=== PATIENT | female | born 1965 | race Caucasian/White ===

== ENCOUNTER 2024-09-15 10:15 | Emergency (ER) | payer BC, SELFPAY ==
[2024-09-15] VITALS (8 sets, daily range): BP systolic 160–191; BP diastolic 85–105; PULSE 98–104; RESP 16–20; TEMP 37.2; O2SAT 96–99; BMI 24.9
--- NOTE | 2024-09-15 | CRLHL7_ITS ---
For Patients: As a result of the Cures Act, medical imaging exams and procedure reports are released immediately into your electronic medical record. You may view this report before your referring provider. If you have questions, please contact your health care provider. Indication: Pain/fall Technique: Right knee 3 views Comparison: None Findings: Bones: No acute fracture or dislocation. Joint spaces: Chondrocalcinosis. Mild patellofemoral joint osteoarthritis. Soft tissues: No knee joint effusion. Impression: No sign of acute injury. Dictated by Dottie Bhakta MD @ 09/15/2024 11:53:19 AM (Electronically Signed)
--- OUTSIDE RECORDS SUMMARY | 2024-09-15 10:17 | XMS_ITS | Data Portability ---
Author Organization [place] [facility] [place] Address [address] [place] [id number] Assessment Encounter Date Assessment Date Assessment LastModified by Organization Details LastModified Time 06/30/2024 06/30/2024 Time spent reviewing the patient s medical record, diagnostic studies, performing a focused history and physical exam, educating the patient regarding the natural history of disease as it pertains to the patient, discussing treatment options and alternatives, medical decision making, and chartin-39 minutes. Not available 06/30/2024 14:48:53 Plan of Treatment Reminders Order Date Submit Date Provider Last Modified By Organization Details Last Modified Time Details Appointments None record ed. Lab None record ed. Referral None record ed. Procedures None record ed. Surgeries None record ed. Imaging None record ed. Medication Orders None record ed. Patient TargetsNo targets recorded. Patient Instructions Encounter Date Encounter Id Patient Instructions Last Modified By Organization Details Last Modified Time 06/30/2024 [id number] PROCEDURE RECOMMENDATIONS 1. Ultrasound guided foam sclerotherapy of the residual incompetent tributaries and varicosities greater than 3.0mm of the left leg (96407, 10099) - 1 sessions 2. Ultrasound guided foam sclerotherapy of the residual incompetent tributaries and varicosities greater than 3.0mm of the right leg (75372, 81261) - 2 sessions Not available 06/30/2024 14:49:05 Reason for Referral None Reported. Problems Name Problem SNOMED Code Status Onset Date Resolution Date Notes Provider Name and Address Organization Details Recorded Time Pain co-occurr ent and due to varicose veins of left leg [id number] 316682 Active 2022 Varicose veins of left lower extremiti es with pain; Status Update Date: 10/19/2022 12:32:02 PM Record Status: True Elle ge Code ID: I83.812 T erminal ID: [id number] ICD Code Version: 10 Not Available [facility] 22:42:42 Problem Notes None recorded. Procedures Surgical History Date Name Laterality Status Provider Name and Address Organization Details Recorded Time 07/28/20 PVC - Ultrasound Guided Sclerotherapy completed Solange Nelson [place] [facility] 07/28/2024 14:00:03 Hysterectomy completed ROSA MARIA Brandon-C [address], [place], [address], [facility] 06/30/2024 14:34:14 Vein Stripping completed ROSA MARIA Brandon-C [address], [place], [address], [facility] 06/30/2024 14:34:14 Vein procedure completed Sylvia Peck PA-C [address], [place], [address], [facility] 06/30/2024 14:34:14 Hand Surgery completed ROSA MARIA Brandon-C [address], [place], [address], [facility] 06/30/2024 14:34:14 Bladder surgery completed Sylvia Peck, PA-C [address], [place], [address], [facility] 06/30/2024 14:34:14 Imaging Results None recorded. Procedure Notes None recorded. Medical Equipment None Reported. Allergies Allergen ID Allergen Name Allergen Category Reaction Reaction Severity Criticality Documentation Date Start Date Code Code System Note Provider Name and Address Organization Details Recorded Time 1908 Betadine medicatio n Not available Not available Not available 09/10/2023 0 RxNorm Comme nt: NoKno wDrug Aller gy: False Jericho rgy Name ID: [id number] Aller gy Remov e Reaso nID: 0 All ergy Remov e By ID: 0 Rec ord Statu s: 1 Ter valerie ID: 59 Da teCRU D: 023 6:28: 00 PM Al lergy Statu s: 1 Ely ction Time: 12:00 AM En tered By Patie nt: False ; Not Available [facility] 3 22:35:16 191 hydrochlo rothiazid e medicatio n Not available Not available Not available 09/10/2023 5487 RxNorm Comme nt: NoKno wDrug Aller gy: False Jericho rgy Name ID: [id number] Aller gy Remov e Reaso nID: 0 All ergy Remov e By ID: 0 Rec ord Statu s: 1 Ter valerie ID: 59 Da teCRU D: 023 6:24: 00 PM Al lergy Statu s: 1 Emmie ction Time: 12:00 AM En tered By Robert nt: False ; Not Available [facility] 3 22:35:16 191 sulfabenz amide Not available Not available Not available Not available 09/10/2023 32941 RxNorm Comme nt: NoKno wDrug Aller gy: False Jericho rgy Name ID: [id number] Jericho rgy Remov e Reaso nID: 0 All ergy Remov e By ID: 0 Rec ord Statu s: 1 Ter valerie ID: 59 Da teCRU D: 023 6:26: 00 PM Al lergy Statu s: 1 Emmie ction Time: 12:00 AM En tered By Robert nt: False ; Not Available [facility] 3 22:35:16 1920 Cortispor in medicatio n Not available Not available Not available 09/10/2023 84756 RxNorm Comme nt: NoKno wDrug Aller gy: False Jericho rgy Name ID: [id number] Aller gy Remov e Reaso nID: 0 All ergy Remov e By ID: 0 Rec ord Statu s: 1 Ter valerie ID: 59 Da teCRU D: 023 6:26: 00 PM Al lergy Statu s: 1 Ely ction Time: 12:00 AM En tered By Robert nt: False ; Not Available [facility] 3 22:35:16 192 Imitrex medicatio n Not available Not available Not available 09/10/2023 06653 3 RxNorm Comme nt: NoKno wDrug Aller gy: False Jericho rgy Name ID: [id number] Aller gy Remov e Reaso nID: 0 All ergy Remov e By ID: 0 Rec ord Statu s: 1 Ter valerie ID: 59 Da teCRU D: 023 6:24: 00 PM Al lergy Statu s: 1 Ely ction Time: 12:00 AM En tered By Patimorales nt: False ; Not Available [facility] 3 22:35:16 1928 ofloxacin medicatio n Not available Not available Not available 09/10/2023 7623 RxNorm Comme nt: NoKno wDrug Aller gy: False Jericho rgy Name ID: [id number] Aller gy Remov e Reaso nID: 0 All ergy Remov e By ID: 0 Rec ord Statu s: 1 Ter valerie ID: 59 Da teCRU D: 023 6:27: 00 PM Al lergy Statu s: 1 Ely ction Time: 12:00 AM En tered By Robert nt: False ; Not Available [facility] 3 22:35:16 193 ketorolac medicatio n Not available Not available Not available 09/10/2023 26424 RxNorm Comme nt: NoKno wDrug Aller gy: False Jericho rgy Name ID: [id number] Aller gy Remov e Reaso nID: 0 All ergy Remov e By ID: 0 Rec ord Statu s: 1 Ter valerie ID: 59 Da teCRU D: 023 6:27: 00 PM Al lergy Statu s: 1 Ely ction Time: 12:00 AM En tered By Robert nt: False ; Not Available [facility] 3 22:35:16 193 Claritin medicatio n Not available Not available Not available 09/10/2023 93529 6 RxNorm Comme nt: NoKno wDrug Aller gy: False Jericho rgy Name ID: [id number] Aller gy Remov e Reaso nID: 0 All ergy Remov e By ID: 0 Rec ord Statu s: 1 Ter valerie ID: 59 Da teCRU D: 023 6:28: 00 PM Al lergy Statu s: 1 Ely ction Time: 12:00 AM En tered By Robert nt: False ; Not Available [facility] 3 22:35:16 1940 Product containin g angiotens in-conver ting enzyme inhibitor (product) medicatio n Not available Not available Not available 09/10/2023 47910 009 SNOMED Comme nt: NoKno wDrug Aller gy: False Jericho rgy Name ID: 8 All ergy Remov e Reaso nID: 0 All ergy Remov e By ID: 0 Rec ord Statu s: 1 Ter valerie ID: 59 Da teCRU D: 023 6:24: 00 PM Al lergy Statu s: 1 Ely ction Time: 12:00 AM En tered By Patimorales nt: False ; Not Available [facility] 3 22:35:16 1944 alprazola m medicatio n Not available Not available Not available 09/10/2023 596 RxNorm React ion: makes anxie ty worse ; Comme nt: NoKno wDrug Aller gy: False Jericho rgy Name ID: [id number] Aller gy Remov e Reaso nID: 0 All ergy Remov e By ID: 0 Rec ord Statu s: 1 Ter valerie ID: 59 Da teCRU D: 023 6:28: 00 PM Al lergy Statu s: 1 Ely ction Time: 12:00 AM En tered By Robert nt: False ; Not Available [facility] 3 22:35:16 1948 neomycin medicatio n Not available Not available Not available 09/10/2023 7299 RxNorm Comme nt: NoKno wDrug Aller gy: False Jericho rgy Name ID: [id number] Aller gy Remov e Reaso nID: 0 All ergy Remov e By ID: 0 Rec ord Statu s: 1 Ter valerie ID: 59 Da teCRU D: 023 6:26: 00 PM Al lergy Statu s: 1 Ely ction Time: 12:00 AM En tered By Robert nt: False ; Not Available [facility] 3 22:35:16 1952 sulfate salt Not available Not available Not available Not available 09/10/2023 React ion: Eye and ear drops ; Comme nt: NoKno wDrug Aller gy: False Jericho rgy Name ID: [id number] Jericho rgy Remov e Reaso nID: 0 All ergy Remov e By ID: 0 Rec ord Statu s: 1 Ter valerie ID: 59 Da teCRU D: 023 6:27: 00 PM Al lergy Statu s: 1 Ely ction Time: 12:00 AM En tered By Patimorales nt: False ; Not Available [facility] 3 22:35:16 1958 polymyxin B Not available Not available Not available Not available 09/10/2023 8536 RxNorm Comme nt: NoKno wDrug Aller gy: False Jericho rgy Name ID: [id number] Jericho rgy Remov e Reaso nID: 0 All ergy Remov e By ID: 0 Rec ord Statu s: 1 Ter valerie ID: 59 Da teCRU D: 023 6:26: 00 PM Al lergy Statu s: 1 Ely ction Time: 12:00 AM En tered By Robert nt: False ; Not Available [facility] 3 22:35:16 1964 Medicinal product acting as adhesive (product) environme nt,medica tion Not available Not available Not available 09/10/2023 68671 2008 SNOMED Comme nt: NoKno wDrug Aller gy: False Jericho rgy Name ID: 0 All ergy Remov e Reaso nID: 0 All ergy Remov e By ID: 0 Rec ord Statu s: 1 Ter valerie ID: 59 Da teCRU D: 023 6:28: 00 PM Al lergy Statu s: 1 Ely ction Time: 12:00 AM En tered By Robert nt: False ; Not Available [facility] 3 22:35:17 8585 Iodinated contrast media (substanc e) medicatio n Not available Not available Not available 06/30/2024 00566 2003 SNOMED Sylvia Peck PA-C [address] [place], [address], [place] [facility] 4 14:36:11 Medications Name Sig Start Date Stop Date Status Note LastModified by Organization Details LastModified Time atorvastat in 10 mg tablet active Not Available Not Available Not Available azithromyc in 250 mg tablet active Not Available Not Available Not Available warfarin 2.5 mg tablet active Not Available Not Available Not Available spironolac tone 25 mg tablet active Not Available Not Available Not Available triamcinol one acetonide 0.1 % topical ointment topical active DrugStren gth: 0.1 % kit DrugC lass: Dermatolo gical - Glucocort icoid PRN : False Dur ation: 0 Duratio nType: Unknown F illedBy: Sylvia Peck Transmit : False IsD iscontinu e: False Pat ientDisco ntinued: False IsC urrentMed ications: True IsSi gned: False Max DailyDose : 0 Not Available Not Available Not Available sertraline 25 mg tablet active Not Available Not Available Not Available metformin ER 500 mg tablet,ext ended release 24 hr active Not Available Not Available Not Available atenolol 50 mg tablet active Not Available Not Available Not Available Zoloft Take 1/2 (half) Tablets oral active Method: Take Drug Strength: 25 mg tablet ugClass: Antidepre ssant - Selective Serotonin Reuptake Inhibitor s (SSRIs) P RN: False Dur ation: 0 Duratio nType: Unknown F illedBy: Sylvia Peck Transmit : False IsD iscontinu e: False Pat ientDisco ntinued: False IsC urrentMed ications: True IsSi gned: False Max DailyDose : 0 Not Available Not Available Not Available nystatin topical active DrugStren gth: 100,000 unit/gram cream Dominic gClass: Antifunga l - Amphoteri c Polyene Macrolide s, Vaginal Antifunga l - Amphoteri c Polyene Macrolide s, Mouth and Throat - Antifunga ls, Dermatolo gical - Antifunga l Amphoteri c Polyene Macrolide s PRN: False Dur ation: 0 Duratio nType: Unknown F illedBy: Sylvia Peck Transmit : False IsD iscontinu e: False Pat ientDisco ntinued: False IsC urrentMed ications: True IsSi gned: False Max DailyDose : 0 Not Available Not Available Not Available warfarin Take 1-2 Tablets oral every other day active Method: Take Drug Strength: 2.5 mg tablet ugClass: Anticoagu lants - Coumarin PRN: False Dur ation: 0 Duratio nType: Unknown F illedBy: Sylvia Peck Transmit : False IsD iscontinu e: False Pat ientDisco ntinued: False IsC urrentMed ications: True IsSi gned: False Max DailyDose : 0 Not Available Not Available Not Available Benadryl Take 2 Capsules oral active Method: Take Drug Strength: 25 mg capsule D rugClass: Antihista mine - 1st Generatio n - Ethanolam carolyn, Sedative- Hypnotic - Antihista mines, Dermatolo gical Antipruri tics - Antihista mines, Antihista mines - 1st Generatio n PRN: False Dur ation: 0 Duratio nType: Unknown F illedBy: Sylvia Peck Transmit : False IsD iscontinu e: False Pat ientDisco ntinued: False IsC urrentMed ications: True IsSi gned: False Max DailyDose : 0 Not Available Not Available Not Available mupirocin topical active DrugStren gth: 2 % ointment kit DrugC lass: Dermatolo gical - Antibacte rial Other PRN : False Dur ation: 0 Duratio nType: Unknown F illedBy: Sylvia Peck Transmit : False IsD iscontinu e: False Pat ientDisco ntinued: False IsC urrentMed ications: True IsSi gned: False Max DailyDose : 0 Not Available Not Available Not Available spironolac tone Take 1 Tablets oral active Method: Take Drug Strength: [address] ugClass: Diuretic - Aldostero ne Receptor Antagonis t, Non-selec tive, Aldostero ne Receptor Antagonis ts PRN: False Dur ation: 0 Duratio nType: Unknown F illedBy: Sylvia Peck Transmit : False IsD iscontinu e: False Pat ientDisco ntinued: False IsC urrentMed ications: True IsSi gned: False Max DailyDose : 0 Not Available Not Available Not Available atenolol Take 1 Tablets oral active Method: Take Drug Strength: 25 mg tablet ugClass: Beta Blockers Cardiac Selective PRN: False Dur ation: 0 Duratio nType: Unknown F illedBy: Sylvia Peck Transmit : False IsD iscontinu e: False Pat ientDisco ntinued: False IsC urrentMed ications: True IsSi gned: False Max DailyDose : 0 Not Available Not Available Not Available potassium Take 1 Tablets oral active Method: Take Drug Strength: 20 mg tablet,ch ewable Dr smythClass: Minerals and Electroly ana paula - Potassium , Oral PRN: False Dur ation: 0 Duratio nType: Unknown F illedBy: Sylvia Peck Transmit : False IsD iscontinu e: False Pat ientDisco ntinued: False IsC urrentMed ications: True IsSi gned: False Max DailyDose : 0 Not Available Not Available Not Available metformin Take 1 Tablets oral active Method: Take Drug Strength: 500 mg tablet,ER jose manuel.rete ntion 24 hr DrugCl ass: Insulin Response Enhancers - Biguanide s PRN: False Dur ation: 0 Duratio nType: Unknown F illedBy: Sylvia Peck Transmit : False IsD iscontinu e: False Pat ientDisco ntinued: False IsC urrentMed ications: True IsSi gned: False Max DailyDose : 0 Not Available Not Available Not Available Metamucil oral active DrugStren gth: 3.4 gram/5.[address] smythClass: Laxative - Bulk Forming P RN: False Dur ation: 0 Duratio nType: Unknown F illedBy: Sylvia Peck Transmit : False IsD iscontinu e: False Pat ientDisco ntinued: False IsC urrentMed ications: True IsSi gned: False Max DailyDose : 0 Not Available Not Available Not Available OneTouch Verio test strips active Not Available Not Available Not Available potassium chloride ER 20 mEq tablet,ext ended release active Not Available Not Available Not Available OneTouch Verio Flex Meter miscellan eous active Not Available Not Available No t Available OneTouch Delica Plus Lancet 33 gauge active Not Available Not Available Not Available Vitals None Recorded Social History Question Answer Notes LastModified by Organizat ion Details LastModified Time Tobacco Smoking Status Never Smoker Sylvia Peck PA-C [address], [place], [address], [facility] 06/30/2024 14:34:11 What Is Your Level Of Alcohol Consumption? None Information not available 06/30/2024 Are You Currently Employed? 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 3-4 Times Per Week Information not available 06/30/2024 Sex: Unknown Functional Status Question Answer Note LastModified by Organization D etails LastModified Time What is your exercise level? Moderate Information not available 06/30/2024 Mental Status None recorded. Family History Relationship Description Onset Age of this Age Resolved Age Notes LastModified by Organization Details LastModified Time Mother Pulmonary embolism Not available 2023 14:34:02 Unspecified Relation Varicose veins of lower extremity Not available 2023 14:34:02 Sister Varicose veins of lower extremity Not available 2023 14:34:02 Medical History Condition Response Clotting Disorder Y Deep Vein Thrombosis Y Varicose Veins Y Diabetes - Type II Y Asthma Y Pulmonary Embolism Y Gynecological History Statement/Question Response How many childrens do you have? 3 Number of Miscarriages O Number of Pregnancies 3 Are you or planning to become p regnant? N Are you ? N Obstetrics History GPAL:G 0 P 0 0 0 0 Past Encounters Encounter ID Performer Location Encounter Start Date Encounter Closed Date Diagnosis/Indication Diagnosis SNOMED-CT Code Diagnosis ICD10 Code [id number] MD Meagan Morgan [address] [place] [address] 06/30/2024 13:29:04 07/02/2024 04:11:42 Pain co-occurrent and due to varicose veins of bilateral legs [id number] I83.813 [id number] MD Meagan Morgan [address] [place] [address] 06/30/2024 13:29:05 07/01/2024 14:51:01 Pain co-occurrent and due to varicose veins of bilateral legs [id number] I83.813 [id number] MD Meagan Morgan [address] [place] [address] 07/28/2024 13:30:32 07/29/2024 09:21:49 Pain co-occurrent and due to varicose veins of left leg [id number] 4905930 I83.812 Health Concerns Section Related Observation LastModified by Organization Detai ls LastModified Time None Recorded Concern Status LastModified by Organization Details LastModified Time None Recorded Advance Directives Directive None Recorded Payers Encounter Date Sequence Insurance Name Policy Number Policy [place] Covered Member ID [place] Member ID Guarantor Name 06/30/2024 1 [employer] [employer] [id number] Caleb J Pasek [id number] Patricia J Pasek 06/30/2024 1 [employer] [employer] [place] [id number] Caleb J Pasek [id number] Patricia J Pasek 07/28/2024 1 [employer] [employer] [place] [id number] Caleb J Pasek [id number] Patricia J Pasek Notes Date Note Type Note Provider Name and Address Organization Details Recorded Time 4 text/html PVC (Q4U) RecheckReported bypatient.Please select the location of your concernRight Leg: Leg; Left Leg: Leg I have had symptoms:More than 3 months Have you ever experienced any of the following symptoms?Pain;Aching;Th robbing;Tired legs/Fatigue;Heaviness; Itching;Skin discoloration;Spider veins;Bulging veins When do the symptoms occur?Sitting;Standing up;After exercise;During exercise What activities of daily living do the symptoms affect?Sleep;Exercise;C hores;Leisure Activities What relieves your symptoms?Avoidance of long periods of sitting/standing; Leg elevation; Over the counter medicationsTylenol Do you wear compression stockings to relieve your symptoms?Yes How long have you worn compression stockings?More than 6 months Have you ever been prescribed medical grade compression stockings?Yes Ramonita Jenkins MD [address] [place], [address], [place] [facility] 06/30/2024 15:54:53 4 text/html The patient is a 59 yo female who presents with complaints of bilateral lower extremity varicose veins and increasing symptoms for the past several years. Patient also has known May Thurners and was seen by [facility] interventional radiology last year (CT and possible stenting was recommended) but was not in network with their office and has not found another IR provider. She did get relief with sclerotherapy done with our clinic last year. Symptoms include: pain, aching, tired legs, heavy legs, recurring swelling, spider veins, surface veins. Intrapelvic symptoms heaviness, pain present as well. History of multiple DVT. Patient is on chronic warfarin. There is no history of ulceration, cellulitis or phleborrhagia. Symptom location: Bilateral, ankle/leg/thigh Symptom severity: 6/10; moderately severe Symptoms occur with: prolonged sitting and standing, during activity/exercise, after activity/exercise, and are worse later in the day. ADLs affected by symptoms:-Exercise/acti vity: limit ability to exercise, including walking.-Work: Needs to take frequent breaks to walk and/or elevate legs.-Chores: Avoids chores or needs to take breaks to walk and/or elevate legs.-Leisure activities: Avoids activities or needs to take breaks to walk and/or elevate. Conservative measures implemented without relief of symptoms:-avoidance of prolonged periods of sitting or standing,-regular exercise including moderate daily walking,-leg elevation,-weight control,-GCS 20-30 mmHg >3 months, Rx given in 2022 and patient worn prior to that as well,-OTC analgesics. Ramonita Jenkins MD [address] [place], [address], [place] [facility] 06/30/2024 15:55:04 OBGyn Episode No OBEpisode recorded.
--- OUTSIDE RECORDS SUMMARY | 2024-09-15 10:18 | XMS_ITS | Continuity of Care Document ---
Author Organization [place] [facility] [place] Address [address] [place] [address] Assessment Encounter Date Assessment Date Assessment LastModified [...] By Organization Details Last Modified Time 06/30/2024 43416 PROCEDURE RECOMMENDATIONS 1. Ultrasound guided foam sclerotherapy of the residual incompetent tributaries and varicosities greater than 3.0mm of the left leg (47505, 43337) - 1 sessions 2. Ultrasound guided foam sclerotherapy of the residual incompetent tributaries and varicosities greater than 3.0mm of the right leg (10192, 11667) - 2 sessions Not available 06/30/2024 14:49:05 Reason for Referral None Reported. Problems Name Problem SNOMED Code Status Onset Date Resolution Date Notes Provider Name and Address Organization Details Recorded Time Pain co-occurr ent and due to varicose veins of left leg [id number] Active 2022 Varicose veins of left lower extremiti es with pain; Status Update Date: 10/19/2022 12:32:02 PM Record Status: True Elle ge Code ID: I83.812 T erminal ID: 56 ICD Code Version: 10 Not Available [facility] 22:42:42 Problem Notes None recorded. Procedures Surgical History Date Name Laterality Status Provider Name and Address Organization Details Recorded Time 07/28/20 PVC - Ultrasound Guided Sclerotherapy completed Solange Nelson [place] - [facility] 07/28/2024 14:00:03 Hysterectomy completed Sylvia Peck PA-C [address], [place], [address], [facility] - [facility] 06/30/2024 14:34:14 Vein Stripping completed Sylvia Peck PA-C [address], [place], [address], [facility] - [facility] 06/30/2024 14:34:14 Vein procedure completed Sylvia Peck, PA-C [address], [place], [address], [facility] - [facility] 06/30/2024 14:34:14 Hand Surgery completed Sylvia Peck, PA-C [address], [place], [address], [facility] - [facility] 06/30/2024 14:34:14 Bladder surgery completed Sylvia Peck, PA-C [address], [place], [address], [facility] - [facility] 06/30/2024 14:34:14 Imaging [...] By Robert nt: False ; Not Available [facility] 3 22:35:16 191 hydrochlo rothiazid e medicatio [...] 00 PM Al lergy Statu s: 1 [place] ction Time: 12:00 AM En tered By Robert nt: False ; Not Available [facility] 3 22:35:16 191 sulfabenz amide Not available Not available Not available Not available 09/10/2023 55522 RxNorm Comme nt: NoKno wDrug Aller gy: False Jericho rgy Name ID: [id number] Jericho rgy Remov e Reaso nID: 0 All ergy Remov e By ID: 0 Rec ord Statu s: 1 Ter valerie ID: 59 Da teCRU D: 023 6:26: 00 PM Al lergy Statu s: 1 [place] ction Time: 12:00 AM En tered By Robert nt: False ; Not Available [facility] 3 22:35:16 192 Cortispor in medicatio n Not available Not available Not available 09/10/2023 09881 RxNorm Comme nt: NoKno wDrug Aller gy: False Jericho rgy Name ID: [id number] Aller gy Remov e Reaso nID: 0 All ergy Remov e By ID: 0 Rec ord Statu s: 1 Ter valerie ID: 59 Da teCRU D: 023 6:26: 00 PM Al lergy Statu s: 1 Emmie ction Time: 12:00 AM En tered By Robert nt: False ; Not Available [facility] 3 22:35:16 192 Imitrex medicatio n Not available Not available Not available 09/10/2023 13297 3 RxNorm Comme nt: NoKno wDrug Aller gy: False Jericho rgy Name ID: [id number] Aller gy Remov e Reaso nID: 0 All ergy Remov e By ID: 0 Rec ord Statu s: 1 Ter valerie ID: 59 Da teCRU D: 023 6:24: 00 PM Al lergy Statu s: 1 [place] ction Time: 12:00 AM En tered By Robert nt: False ; Not Available [facility] 3 22:35:16 1928 ofloxacin medicatio n Not available Not available Not available 09/10/2023 7623 RxNorm Comme nt: NoKno wDrug Aller gy: False Jericho rgy Name ID: [id number] Aller gy Remov e Reaso nID: 0 All ergy Remov e By ID: 0 Rec ord Statu s: 1 Ter valerie ID: 59 Da teCRU D: 023 6:27: 00 PM Al lergy Statu s: 1 [place] ction Time: 12:00 AM En tered By Robert nt: False ; Not Available [facility] 3 22:35:16 193 ketorolac medicatio n Not available Not available Not available 09/10/2023 36931 RxNorm Comme nt: NoKno wDrug Aller gy: False Jericho rgy Name ID: [id number] Aller gy Remov e Reaso nID: 0 All ergy Remov e By ID: 0 Rec ord Statu s: 1 Ter valerie ID: 59 Da teCRU D: 023 6:27: 00 PM Al lergy Statu s: 1 [place] ction Time: 12:00 AM En tered By Robert nt: False ; Not Available [facility] 3 22:35:16 1936 Claritin medicatio n Not available Not available Not available 09/10/2023 24402 6 RxNorm Comme nt: NoKno wDrug Aller gy: False Jericho rgy Name ID: [id number] Aller gy Remov e Reaso nID: 0 All ergy Remov e By ID: 0 Rec ord Statu s: 1 Ter valerie ID: 59 Da teCRU D: 023 6:28: 00 PM Al lergy Statu s: 1 Emmie ction Time: 12:00 AM En tered By Robert nt: False ; Not Available [facility] 3 22:35:16 1940 Product containin g angiotens in-conver ting enzyme inhibitor (product) medicatio n Not available Not available Not available 09/10/2023 43670 009 SNOMED Comme nt: NoKno wDrug Aller gy: False Jericho rgy Name ID: 8 All ergy Remov e Reaso nID: 0 All ergy Remov e By ID: 0 Rec ord Statu s: 1 Ter valerie ID: 59 Da teCRU D: 023 6:24: 00 PM Al lergy Statu s: 1 Emmie ction Time: 12:00 AM En tered By Robert nt: False ; Not Available [facility] 3 22:35:16 1944 alprazola m medicatio n [...] By Robert nt: False ; Not Available [facility] 3 22:35:16 1948 neomycin medicatio n Not [...] By Robert nt: False ; Not Available [facility] 3 22:35:16 1952 sulfate salt Not available Not available Not available Not available 09/10/2023 React ion: Eye and ear drops ; Comme nt: NoKno wDrug Aller gy: False Jericho rgy Name ID: [id number] Jericho rgy Remov e Reaso nID: 0 All ergy Remov e By ID: 0 Rec ord Statu s: 1 Ter valerie ID: 59 Da teCRU D: 023 6:27: 00 PM Al lergy Statu s: 1 Emmie ction Time: 12:00 AM En tered By Patimorales nt: False ; Not Available [facility] 3 22:35:16 1958 polymyxin B Not available Not available Not available Not available 09/10/2023 8536 RxNorm Comme nt: NoKno wDrug Aller gy: False Jericho rgy Name ID: [id number] Jericho rgy Remov e Reaso nID: 0 All ergy Remov e By ID: 0 Rec ord Statu s: 1 Ter valerie ID: 59 Da teCRU D: 023 6:26: 00 PM Al lergy Statu s: 1 Emmie ction Time: 12:00 AM En tered By Patimorales nt: False ; Not Available [facility] 3 22:35:16 1964 Medicinal product acting as adhesive (product) environme nt,medica tion Not available Not available Not available 09/10/2023 13054 2008 SNOMED Comme nt: NoKno wDrug Aller gy: False Jericho rgy Name ID: 0 All ergy Remov e Reaso nID: 0 All ergy Remov e By ID: 0 Rec ord Statu s: 1 Ter valerie ID: 59 Da teCRU D: 023 6:28: 00 PM Al lergy Statu s: 1 Emmie ction Time: 12:00 AM En tered By Patimorales nt: False ; Not Available [facility] 3 22:35:17 8585 Iodinated contrast media (substanc e) medicatio n Not available Not available Not available 06/30/2024 00047 2004 SNOMED Sylvia Peck PA-C [address] [place], [address], [place] [facility] 4 14:36:11 [...] Take Drug Strength: 25 mg tablet ugClass: Diuretic - Aldostero ne Receptor Antagonis [...] Take Drug Strength: [address] smythClass: Beta Blockers Cardiac Selective PRN: False Dur [...] Time Tobacco Smoking Status Never Smoker Sylvia Peck, JEREMIAH [address] [place], [address], [place] [facility] 06/30/2024 14:34:11 What Is Your Level Of Alcohol Consumption? None Information not available 06/30/2024 Are You Currently Employed? 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 [employer] Information not available 06/30/2024 How [...] available 2023 14:34:02 Medical History Condition Response Diabetes - Type II Y Clotting Disorder Y Deep Vein Thrombosis Y Varicose Veins Y Asthma Y Pulmonary Embolism Y Gynecological [...] Diagnosis/Indication Diagnosis SNOMED-CT Code Diagnosis ICD10 Code [id number] MD Meagan Morgan [address] [place] [address] 06/30/2024 13:29:04 07/02/2024 04:11:42 Pain co-occurrent and due to varicose veins of bilateral legs [id number] 4263320 I83.813 [id number] MD Meagan Morgan [address] [place] [address] 06/30/2024 13:29:05 07/01/2024 14:51:01 Pain co-occurrent and due to varicose veins of bilateral legs [id number] 4962793 I83.813 Health Concerns Section Related Observation LastModified by Organization Detai ls LastModified Time None Recorded Concern Status LastModified by Organization Details LastModified Time None Recorded Payers Encounter Date Sequence Insurance Name Policy Number Policy [place] Covered Member ID Hampton Member ID Guarantor Name 06/30/2024 1 [employer]: GISELLE MONTERO CROSS (PPO) [id number] Caleb Rodgers Helio [id number] 02 Patricia Cadet Notes Date Note Type Note Provider Name [...] compression stockings?Yes Ramonita Jenkins MD [address] [facility], [place], [address], [facility] - [facility] 06/30/2024 15:54:53 4 text/html The patient is a 59 yo female who presents with complaints of bilateral lower extremity varicose veins and increasing symptoms for the past several years. Patient also has known Maia Greene and was seen by E interventional radiology [...] that as well,-OTC analgesics. Ramonita Jenkins MD [address], [place], [address], [place] [facility] 06/30/2024 15:55:04 OBGyn Episode No OBEpisode recorded.
--- OUTSIDE RECORDS SUMMARY | 2024-09-15 10:18 | XMS_ITS | Continuity of Care Document ---
Author Organization [facility] [place] Address [address] [place] [address] Assessment No assessment recorded. Plan of Treatment Reminders Order Date Submit Date Provider Last Modified By Organization Details Last Modified Time Details Appointments None record ed. Lab None record ed. Referral None record ed. Procedures None record ed. Surgeries None record ed. Imaging None record ed. Medication Orders None record ed. Patient TargetsNo targets recorded. Patient InstructionsNo instructions recorded. Reason for Referral None Reported. Problems Name Problem SNOMED Code Status Onset Date Resolution Date Notes Provider Name and Address Organization Details Recorded Time Pain co-occurr ent and due to varicose veins of left leg [id number] 249726 Active 2022 Varicose veins of left lower extremiti es with pain; Status Update Date: 10/19/2022 12:32:02 PM Record Status: True Elle ge Code ID: I83.812 T erminal ID: 56 ICD Code Version: 10 Not Available [facility] 3 22:42:42 Problem Notes None recorded. Procedures Surgical History Date Name Laterality Status Provider Name and Address Organization Details Recorded Time 07/28/20 24 PVC - Ultrasound Guided Sclerotherapy completed Solange Nelson [facility] 07/28/2024 14:00:03 Hysterectomy completed Sylvia Peck PA-C [address] [place], [address], [facility] 06/30/2024 14:34:14 Vein Stripping completed Sylvia Peck PA-C [address] [place], [address], [facility] 06/30/2024 14:34:14 Vein procedure completed Sylvia Peck PA-C [address], [place], [address], [place] [facility] 06/30/2024 14:34:14 Hand Surgery completed Sylvia Peck PA-C [address], [place], [address], [place] [facility] 06/30/2024 14:34:14 Bladder surgery completed Sylvia Peck PA-C [address], [place], [address], [facility] - [facility] 06/30/2024 14:34:14 Imaging Results None recorded. Procedure Notes None recorded. Medical Equipment None Reported. Allergies Allergen ID Allergen Name Allergen Category Reaction Reaction Severity Criticality Documentation Date Start Date Code Code System Note Provider Name and Address Organization Details Recorded Time 1908 Betadine medicatio n Not available Not available Not available 09/10/202366294 0 RxNorm Comme nt: NoLanio wDrug Aller gy: False Jericho rgy Name ID: [id number] Aller gy Remov e Reaso nID: 0 All ergy Remov e By ID: 0 Rec ord Statu s: 1 Ter valerie ID: 59 Da teCRU D: 023 6:28: 00 PM Al lergy Statu s: 1 Qulin ction Time: 12:00 AM En tered By Patimorales nt: False ; Not Available [facility] 3 22:35:16 191 hydrochlo rothiazid e medicatio n Not available Not available Not available 09/10/2023 5487 RxNorm Comme nt: NoLanio wDrug Aller gy: False Jericho rgy Name ID: [id number] Aller gy Remov e Reaso nID: 0 All ergy Remov e By ID: 0 Rec ord Statu s: 1 [address] valerie ID: 59 Da teCRU D: 023 6:24: 00 PM Al lergy Statu s: 1 Qulin ction Time: 12:00 AM En tered By Patie nt: False ; Not Available [facility] 3 22:35:16 191 sulfabenz amide Not available Not available Not available Not available 09/10/2023 71973 RxNorm Comme nt: NoKno wDrug Aller gy: False Jericho rgy Name ID: [id number] Jericho rgy Remov e Reaso nID: 0 All ergy Remov e By ID: 0 Rec ord Statu s: 1 [address] val[address] ID: 59 Da teCRU D: 023 6:26: 00 PM Al lergy Statu s: 1 Emmie ction Time: 12:00 AM En tered By Patie nt: False ; Not Available [facility] 3 22:35:16 192 Cortispor in medicatio n Not available Not available Not available 09/10/2023 62190 RxNorm Comme nt: NoKno wDrug Aller gy: False Jericho rgy Name ID: [id number] Aller gy Remov e Reaso nID: 0 All ergy Remov e By ID: 0 Rec ord Statu s: 1 [address] val[address] ID: 59 Da teCRU D: 023 6:26: 00 PM Al lergy Statu s: 1 Qulin ction Time: 12:00 AM En tered By Patimorales nt: False ; Not Available [facility] 3 22:35:16 1925 Imitrex medicatio n Not available Not available Not available 09/10/2023 28462 3 RxNorm Comme nt: NoKno wDrug Aller gy: False Jericho rgy Name ID: [id number] Aller gy Remov e Reaso nID: 0 All ergy Remov e By ID: 0 Rec ord Statu s: 1 [address] ID: 59 Da teCRU D: 023 6:24: 00 PM Al lergy Statu s: 1 Qulin ction Time: 12:00 AM En tered By Patie nt: False ; Not Available [facility] 3 22:35:16 1928 ofloxacin medicatio n Not available Not available Not available 09/10/2023 7623 RxNorm Comme nt: NoKno wDrug Aller gy: False Jericho rgy Name ID: [id number] Aller gy Remov e Reaso nID: 0 All ergy Remov e By ID: 0 Rec ord Statu s: 1 [address] ID: 59 Da teCRU D: 023 6:27: 00 PM Al lergy Statu s: 1 Qulin ction Time: 12:00 AM En tered By Patie nt: False ; Not Available [facility] 3 22:35:16 1932 ketorolac medicatio n Not available Not available Not available 09/10/2023 96199 RxNorm Comme nt: NoKno wDrug Aller gy: False Jericho rgy Name ID: [id number] Aller gy Remov e Reaso nID: 0 All ergy Remov e By ID: 0 Rec ord Statu s: 1 [address] ID: 59 Da teCRU D: 023 6:27: 00 PM Al lergy Statu s: 1 Emmie ction Time: 12:00 AM En tered By Robert nt: False ; Not Available [facility] 3 22:35:16 1936 Claritin medicatio n Not available Not available Not available 09/10/2023 28741 6 RxNorm Comme nt: NoKno wDrug Aller gy: False Jericho rgy Name ID: [id number] Aller gy Remov e Reaso nID: 0 All ergy Remov e By ID: 0 Rec ord Statu s: 1 Ter valerie ID: 59 Da teCRU D: 023 6:28: 00 PM Al lergy Statu s: 1 Qulin ction Time: 12:00 AM En tered By Robert nt: False ; Not Available [facility] 3 22:35:16 1940 Product containin g angiotens in-conver ting enzyme inhibitor (product) medicatio n Not available Not available Not available 09/10/2023 14937 009 SNOMED Comme nt: NoKno wDrug Aller gy: False Jericho rgy Name ID: 8 All ergy Remov e Reaso nID: 0 All ergy Remov e By ID: 0 Rec ord Statu s: 1 Ter valerie ID: 59 Da teCRU D: 023 6:24: 00 PM Al lergy Statu s: 1 Emmie ction Time: 12:00 AM En tered By Robert nt: False ; Not Available [facility] 3 22:35:16 1944 alprazola m medicatio n [...] 00 PM Al lergy Statu s: 1 Qulin ction Time: 12:00 AM En tered By Patimorales nt: False ; Not Available [facility] 3 22:35:16 1948 neomycin medicatio n Not [...] By Robert nt: False ; Not Available [facility] 3 22:35:16 1952 sulfate salt Not available Not available Not available Not available 09/10/2023 React ion: Eye and ear drops ; Comme nt: NoKno wDrug Aller gy: False Jericho rgy Name ID: [id number] Jericho rgy Remov e Reaso nID: 0 All ergy Remov e By ID: 0 Rec ord Statu s: 1 [address] val[address] ID: 59 Da teCRU D: 023 6:27: 00 PM Al lergy Statu s: 1 Qulin ction Time: 12:00 AM En tered By Robert nt: False ; Not Available [facility] 3 22:35:16 1958 polymyxin B Not available Not available Not available Not available 09/10/2023 8536 RxNorm Comme nt: NoKno wDrug Aller gy: False Jericho rgy Name ID: [id number] Jericho rgy Remov e Reaso nID: 0 All ergy Remov e By ID: 0 Rec ord Statu s: 1 [address] valerie ID: 59 Da teCRU D: 023 6:26: 00 PM Al lergy Statu s: 1 Qulin ction Time: 12:00 AM En tered By Patimorales nt: False ; Not Available [facility] 3 22:35:16 1964 Medicinal product acting as adhesive (product) environme nt,medica tion Not available Not available Not available 09/10/2023 60879 2008 SNOMED Comme nt: Mag wDrug Aller gy: False Jericho rgy Name ID: 0 All ergy Remov e Reaso nID: 0 All ergy Remov e By ID: 0 Rec ord Statu s: 1 Ter valerie ID: 59 Da teCRU D: 023 6:28: 00 PM Al lergy Statu s: 1 Qulin ction Time: 12:00 AM En tered By Robert nt: False ; Not Available [facility] 3 22:35:17 8585 Iodinated contrast media (substanc e) medicatio n Not available Not available Not available 06/30/2024 90694 2003 SNOMED Sylvia Peck, JEREMIAH [address] [place], [address], [facility] - [facility] 4 14:36:11 Medications [...] Drug Strength: [address] smythClass: Diuretic - Aldostero ne Receptor Antagonis t, [...] Dur ation: 0 Duratio nType: Unknown F illeMitchell: Sylvia Peck Transmit : False IsD iscontinu [...] Smoking Status Never Smoker Sylvia Peck, JEREMIAH [address], [place], [address], [facility] - [facility] 06/30/2024 14:34:11 What Is Your Level Of Alcohol Consumption? None Information not available 06/30/2024 Are You Currently Employed? 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 3 Number of Miscarriages O Number of Pregnancies 3 Are you or planning to become p regnant? N Are you ? N Obstetrics History GPAL:G 0 P 0 0 0 0 Past Encounters Encounter ID Performer Location Encounter Start Date Encounter Closed Date Diagnosis/Indication Diagnosis SNOMED-CT Code Diagnosis ICD10 Code [id number] Ramonita Jenkins MD [place] [address] [place] [address] 06/30/2024 13:29:04 07/02/2024 04:11:42 Pain co-occurrent and due to varicose veins of bilateral legs [id number] I83.813 [id number] MD Meagan Morgan e [address] [place] [address] 06/30/2024 13:29:05 07/01/2024 14:51:01 Pain co-occurrent and due to varicose veins of bilateral legs [id number] 5122816 I83.813 [id number] MD Meagan Morgan e [address] [place] [address] 07/28/2024 13:30:32 07/29/2024 09:21:49 Pain co-occurrent and due to varicose veins of left leg [id number] 2812230 I83.812 Health Concerns Section Related Observation LastModified by Organization Detai ls LastModified Time None Recorded Concern Status LastModified by Organization Details LastModified Time None Recorded Payers Encounter Date Sequence Insurance Name Policy Number Policy Hampton Covered Member ID Hampton Member ID Guarantor Name 07/28/2024 1 [employer]: ANTHEM BLUE CROSS (PPO) [id number] Caleb Cadet [id number] Patricia Cadet OBGyn Episode No OBEpisode recorded.
--- OUTSIDE RECORDS SUMMARY | 2024-09-15 10:18 | XMS_ITS | Continuity of Care Document ---
Author Organization [facility] [place] Address [address] [place] [address] Assessment No assessment recorded. Plan of Treatment [...] due to varicose veins of left leg [id number] Active 2022 Varicose veins of left lower extremiti es with pain; Status Update Date: 10/19/2022 12:32:02 PM Record Status: True Elle ge Code ID: I83.812 T erminal ID: [id number] ICD Code Version: 10 Not Available [facility] 3 22:42:42 Problem Notes None recorded. Procedures Surgical History Date Name Laterality Status Provider Name and Address Organization Details Recorded Time 07/28/20 24 PVC - Ultrasound Guided Sclerotherapy completed Solange Nelson [facility] 07/28/2024 14:00:03 Hysterectomy completed Sylvia Peck PA-C [address] [place], [address], [facility] 06/30/2024 14:34:14 Vein Stripping completed Sylvia Peck PA-C [address] [place], [address], [facility] 06/30/2024 14:34:14 Vein procedure completed Sylvia Peck PA-C [address], [place], [address], [place] - [facility] 06/30/2024 14:34:14 Hand Surgery completed Sylvia Peck PA-C [address], [place], [address], [place] [facility] 06/30/2024 14:34:14 Bladder surgery completed Sylvia Peck PA-C [address], [place], [address], [facility] [place] - [facility] 06/30/2024 14:34:14 Imaging Results None recorded. Procedure Notes None recorded. Medical Equipment None Reported. Allergies Allergen ID Allergen Name Allergen Category Reaction Reaction Severity Criticality Documentation Date Start Date Code Code System Note Provider Name and Address Organization Details Recorded Time 1908 Betadine medicatio n Not available Not available Not available 09/10/202396876 0 RxNorm Comme nt: NoLanio wDrug Aller gy: False [place] rgy Name ID: [id number] Aller gy Remov e Reaso nID: 0 All ergy Remov e By ID: 0 Rec ord Statu s: 1 Ter valerie ID: 59 Da teCRU D: 023 6:28: 00 PM Al lergy Statu s: 1 [place] ction Time: 12:00 AM En tered By Patimorales nt: False ; Not Available [facility] 3 22:35:16 191 hydrochlo rothiazid e medicatio [...] 00 PM Al lergy Statu s: 1 [place] ction Time: 12:00 AM En tered By Patie nt: False ; Not Available [facility] 3 22:35:16 191 sulfabenz amide Not available Not available Not available Not available 09/10/2023 99922 RxNorm Comme nt: NoKno wDrug Aller gy: False [place] rgy Name ID: [id number] [place] rgy Remov e Reaso nID: 0 All ergy Remov e By ID: 0 Rec ord Statu s: 1 Ter valerie ID: 59 Da teCRU D: 023 6:26: 00 PM Al lergy Statu s: 1 [place] ction Time: 12:00 AM En tered By Patie nt: False ; Not Available [facility] 3 22:35:16 192 Cortispor in medicatio n Not available Not available Not available 09/10/2023 93402 RxNorm Comme nt: NoKno wDrug Aller gy: False [place] rgy Name ID: [id number] Aller gy Remov e Reaso nID: 0 All ergy Remov e By ID: 0 Rec ord Statu s: 1 Ter valerie ID: 59 Da teCRU D: 023 6:26: 00 PM Al lergy Statu s: 1 [place] ction Time: 12:00 AM En tered By Patimorales nt: False ; Not Available [facility] 3 22:35:16 1925 Imitrex medicatio n Not available Not available Not available 09/10/2023 66074 3 RxNorm Comme nt: NoKno wDrug Aller gy: False [place] rgy Name ID: [id number] Aller gy Remov e Reaso nID: 0 All ergy Remov e By ID: 0 Rec ord Statu s: 1 [place] ID: 59 Da teCRU D: 023 6:24: 00 PM Al lergy Statu s: 1 [place] ction Time: 12:00 AM En tered By Patie nt: False ; Not Available [facility] 3 22:35:16 1928 ofloxacin medicatio n Not available Not available Not available 09/10/2023 7623 RxNorm Comme nt: NoKno wDrug Aller gy: False [place] rgy Name ID: [id number] Aller gy Remov e Reaso nID: 0 All ergy Remov e By ID: 0 Rec ord Statu s: 1 [place] ID: 59 Da teCRU D: 023 6:27: 00 PM Al lergy Statu s: 1 [place] ction Time: 12:00 AM En tered By Patie nt: False ; Not Available [facility] 3 22:35:16 1932 ketorolac medicatio n Not available Not available Not available 09/10/2023 04036 RxNorm Comme nt: NoKno wDrug Aller gy: [...] Not available Not available Not available 09/10/2023 44237 6 RxNorm Comme nt: NoKno wDrug Aller gy: False [place]o rgy Name ID: [id number] Aller gy Remov e Reaso nID: 0 All ergy Remov e By ID: 0 Rec ord Statu s: 1 [place] ID: 59 Da teCRU D: 023 6:28: 00 PM Al lergy Statu s: 1 [place] ction Time: 12:00 AM En tered By Robert nt: False ; Not Available [facility] 3 22:35:16 1940 Product containin g angiotens in-conver ting enzyme inhibitor (product) medicatio n Not available Not available Not available 09/10/2023 23542 009 SNOMED Comme nt: NoKno wDrug Aller gy: False [place] rgy Name ID: 8 All ergy Remov e Reaso nID: 0 All ergy Remov e By ID: 0 Rec ord Statu s: 1 [place] ID: 59 Da teCRU D: 023 6:24: 00 PM Al lergy Statu s: 1 [place] ction Time: 12:00 AM En tered By Robert nt: False ; Not Available [facility] 3 22:35:16 1944 alprazola m medicatio n [...] 00 PM Al lergy Statu s: 1 [place] ction Time: 12:00 AM En tered By [...] By Robert nt: False ; Not Available [facility] 3 22:35:16 1952 sulfate salt Not available Not available Not available Not available 09/10/2023 React ion: Eye and ear drops ; Comme nt: NoKno wDrug Aller gy: False [place]o rgy Name ID: [id number] [place] rgy Remov e Reaso nID: 0 All ergy Remov e By ID: 0 Rec ord Statu s: 1 [place] ID: 59 Da teCRU D: 023 6:27: 00 PM Al lergy Statu s: 1 [place] ction Time: 12:00 AM En tered By Robert nt: False ; Not Available [facility] 3 22:35:16 1958 polymyxin B Not available Not available Not available Not available 09/10/2023 8536 RxNorm Comme nt: NoKno wDrug Aller gy: False [place] rgy Name ID: [id number] [place] rgy Remov e Reaso nID: 0 All ergy Remov e By ID: 0 Rec ord Statu s: 1 [place] ID: 59 Da teCRU D: 023 6:26: 00 PM Al lergy Statu s: 1 [place] ction Time: 12:00 AM En tered By Patimorales nt: False ; Not Available [facility] 3 22:35:16 1964 Medicinal product acting as adhesive (product) environme nt,medica tion Not available Not available Not available 09/10/2023 84454 2008 SNOMED Comme nt: Mag wDrug Aller gy: False [place] rgy Name ID: 0 All ergy Remov e Reaso nID: 0 All ergy Remov e By ID: 0 Rec ord Statu s: 1 [place] ID: 59 Da teCRU D: 023 6:28: 00 PM Al lergy Statu s: 1 [place] ction Time: 12:00 AM En tered By Robert nt: False ; Not Available [facility] 3 22:35:17 8585 Iodinated contrast media (substanc e) medicatio n Not available Not available Not available 06/30/2024 78789 2003 SNOMED Sylvia Peck, JEREMIAH [address] [place], [address], [facility] [place] - [facility] 4 14:36:11 Medications [...] Drug Strength: 20 mg tablet,ch ewable Dr msythClass: Minerals and Electroly ana paula - Potassium [...] Sylvia Peck, JEREMIAH [address], [place], [address], [facility] [place] - [facility] 06/30/2024 14:34:11 What Is Your Level Of Alcohol Consumption? None Information not available 06/30/2024 Are You Currently Employed? 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 3 Number of Miscarriages O Number of Pregnancies 3 Are you or planning to become p regnant? N Are you ? N Obstetrics History GPAL:G 0 P 0 0 0 0 Past Encounters Encounter ID Performer Location Encounter Start Date Encounter Closed Date Diagnosis/Indication Diagnosis SNOMED-CT Code Diagnosis ICD10 Code [id number] Ramonita Jenkins MD [place] [facility] [address] [place] [address] 06/30/2024 13:29:04 07/02/2024 04:11:42 Pain co-occurrent and due to varicose veins of bilateral legs [id number] I83.813 [id number] Ramonita Jenkins MD [place] [facility] [address] [place] [address] 06/30/2024 13:29:05 07/01/2024 14:51:01 Pain co-occurrent and due to varicose veins of bilateral legs [id number] 2257554 I83.813 Health Concerns Section Related Observation LastModified by Organization Detai ls LastModified Time None Recorded Concern Status LastModified by Organization Details LastModified Time None Recorded Payers Encounter Date Sequence Insurance Name Policy Number Policy [place] Covered Member ID Hampton Member ID Guarantor Name 06/30/2024 1 [employer]: GISELLE [employer] (PPO) [id number] Caleb Cadet [id number] Patricia Cadet Notes Date Note Type [...] stockings?Yes Ramonita Jenkins MD [address], [place], [place], [address], [place] - [facility] 06/30/2024 15:54:53 text/html The patient is a 59 yo [...] analgesics. Ramonita Jenkins MD [address], [place], [place], [address], [place] - [facility] 06/30/2024 15:55:04 OBGyn Episode No OBEpisode recorded.
--- NOTE | 2024-09-15 10:47 | CRLHL7_ITS ---
For Patients: As a result of the Century Cures Act, medical imaging exams and procedure reports are released immediately into your electronic medical record. You may view this report before your referring provider. If you have questions, please contact your health care provider. INDICATION: Fall with back pain. TECHNIQUE: CT lumbar spine without contrast. COMPARISON: None FINDINGS: Vertebral alignment: Alignment is normal. Vertebrae: There are no fractures or suspicious bony lesions. Discs and facet joints: Mild L4-5 disc space narrowing. Shallow disc protrusions L2-3 L3-4 and L5-S1 with mild peripheral calcifications. No uiovqtcq-va-xdxika central or lateral stenosis. Multilevel moderate facet arthrosis Extraspinal findings: Prevertebral soft tissues and visualized retroperitoneum are unremarkable. IMPRESSION: No acute lumbar CT abnormalities. Multilevel lumbar spondylosis. Please note that all CT scans at this facility use dose modulation, iterative reconstruction, and/or weight-based dosing when appropriate to reduce radiation dose to as low as reasonably achievable. Dictated by Ankur Berg MD @ 09/15/2024 11:37:56 AM (Electronically Signed)
--- NOTE | 2024-09-15 11:46 | CRLHL7_ITS ---
For Patients: As a result of the Century Cures Act, medical imaging exams and procedure reports are released immediately into your electronic medical record. You may view this report before your referring provider. If you have questions, please contact your health care provider. Indication: Fall today. Technique: Noncontrast CT of head was performed. Comparison: None available. Findings: Brain parenchyma: Normal kasper-white matter differentiation. No acute intraparenchymal hemorrhage. No mass effect or midline shift. Partial empty sella. Extra-axial spaces: No extra-axial collection. Ventricular system: Unremarkable for age. Paranasal sinuses and mastoid air cells: Clear. Orbits: Unremarkable. Bones: No calvarial fracture. Impression: No acute intracranial abnormality identified. Please note that all CT scans at this facility use dose modulation, iterative reconstruction, and/or weight-based dosing when appropriate to reduce radiation dose to as low as reasonably achievable. Dictated by Gianna Caceres MD @ 09/15/2024 12:56:37 PM (Electronically Signed)
--- NOTE | 2024-09-15 11:47 | CRLHL7_ITS ---
For Patients: As a result of the Cures Act, medical imaging exams and procedure reports are released immediately into your electronic medical record. You may view this report before your referring provider. If you have questions, please contact your health care provider. Indication: Fall Technique: Single view of the pelvis, two views of the left hip. Comparison: None. Findings: Osteopenia. Postsurgical changes are seen within the pelvis. Rauw-my-eelnnnvk degenerative changes of the bilateral hips. No acute displaced fracture or malalignment. Impression: No acute displaced fracture or malalignment. Dictated by Brian Ocampo MD @ 09/15/2024 1:01:42 PM (Electronically Signed)
--- NOTE | 2024-09-15 12:04 | ED_ITS ---
HPI - General Adult General Date Seen: 09/15/24 Chief complaint: Fall/Minor Trauma Stated complaint: fall Time Seen by Provider: 09/15/24 10:42 Source: patient Mode of arrival: EMS History of Present Illness HPI narrative: Patient is a 59-year-old woman here by EMS after slipping on the ice while walking her dog. She landed on her back. She told the nurse she had her head, told me she did not, no loss of consciousness. She says she was unable to get up because of severe pain in her back, she indicates low lumbar to me. She does not have pain is specifically radiates although she says she also hurt her hip and she had previously injured her knee and she feels like she re-injured this. She has numerous medication allergies. Past medical history reviewed. Related Data Home Medications ?Medication ?Instructions ?Recorded ?Confirmed atenolol 50 mg tablet PO 09/15/24 warfarin 2.5 mg tablet PO 09/15/24 Previous Rx's ?Medication ?Instructions ?Recorded cyclobenzaprine 10 mg tablet 10 mg PO TID PRN muscle spasm #14 09/15/24 tabs Allergies Allergy/AdvReac Type Severity Reaction Status Date / Time Fish Containing Products Allergy Intermediate Swelling Verified 09/15/24 10:46 of Lip/Tongue/Throat hydrochlorothiazide Allergy Intermediate Hives Verified 09/15/24 10:46 loratadine (From Claritin) Allergy Intermediate Verified 09/15/24 10:46 IVAN Inhibitors Allergy Unknown Verified 09/15/24 10:46 bacitracin (From Cortisporin) Allergy Unknown Verified 09/15/24 10:46 hydrocortisone (From Allergy Unknown Verified 09/15/24 10:46 Cortisporin) neomycin Allergy Unknown Verified 09/15/24 10:46 polymyxin B Allergy Unknown Verified 09/15/24 10:46 povidone-iodine (From Allergy Unknown Verified 09/15/24 10:46 Betadine) sulfabenzamide Allergy Unknown Verified 09/15/24 10:46 sumatriptan (From Imitrex) Allergy Unknown Verified 09/15/24 10:46 adhesive tape AdvReac Unknown Verified 09/15/24 10:46 alprazolam AdvReac Verified 09/15/24 10:46 contrast Media Ready-Box Allergy Severe Difficulty Uncoded 09/15/24 10:46 Breathing eye drops Allergy Intermediate Hives Uncoded 09/15/24 10:46 ketorolac tromethamine Allergy Intermediate Hives Uncoded 09/15/24 10:46 ear drops Allergy Unknown Uncoded 09/15/24 10:46 Review of Systems Status of ROS: Reports: 6 or more systems reviewed and unremarkable except as noted in History and below Exam Narrative: Exam Narrative: Vital signs reviewed In general, alert, nontoxic In each woman. She is lying flat on her back on the gurney. She looks comfortable. Head: Normocephalic, atraumatic. Eyes: Sclera clear. Pupils equal and reactive. ENT: Mucous membranes moist. Neck: Supple without adenopathy. Heart: Regular rate and rhythm without murmur. Lungs: Clear. No increased work of breathing, crackles or wheezes. Back: Not examined initially secondary to pain. Abdomen: Soft, nontender to palpation. Extremities: Well perfused, pulses intact. No significant edema. She has full range of motion of both hips and both knees. She has diffuse tenderness of the right knee without effusion. Neurologic: Alert, conversant. Speech fluent, face symmetric. Moves all extremities equally. Strength equal in lower extremities. Skin: Warm, dry well perfused. Affect: Normal. Const: Vital Signs, click to edit/add: Vital Signs - 24 hr 09/15/24 10:25 09/15/24 11:19 09/15/24 11:20 Temperature 98.9 F Pulse Rate 103 H 101 H Pulse Rate [Pulse Oximeter] 104 H Respiratory Rate 20 Blood Pressure 166/99 H 167/97 H Blood Pressure [Ri ght Forearm] 191/105 H Pulse Oximetry 99 98 98 Oxygen Delivery Me thod Room Air 09/15/24 11:21 09/15/24 11:30 09/15/24 11:31 Temperature Pulse Rate 98 100 100 Pulse Rate [Pulse Oximeter] Respiratory Rate Blood Pressure 160/85 H Blood Pressure [Ri ght Forearm] Pulse Oximetry 98 97 98 Oxygen Delivery Me thod 09/15/24 11:45 09/15/24 12:00 Temperature Pulse Rate 102 H 100 Pulse Rate [Pulse Oximeter] Respiratory Rate 16 Blood Pressure Blood Pressure [Ri ght Forearm] Pulse Oximetry 98 96 Oxygen Delivery Me thod Course Course ED Course: CT scans ordered of the head and lumbar spine, patient is anticoagulated with Coumadin. She also requests that we check her INR today. This is pending. X- ray of the right knee was done, x-ray of the right hip is pending. By my review, lumbar CT is negative for fracture or other acute findings. Read as negative by Radiology. X-ray of the right knee by my review is negative for fracture dislocation. Read as negative by Radiology. she refused morphine due to intolerance. She did get a mg of Ativan p.o.. She refused IV because of concerns about allergies. CT of the head by my review is negative. X-ray of the left hip by my review is negative. Radiology reads these is negative as well. She did have her Ativan here, velcro back brace was placed and she feels improved on that. She is ambulatory, stable for discharge home. INR was 2. Primary care recommended for ongoing concerns. Return any time for acute worsening. Vital Signs Vital signs: Initial Vital Signs Temperature 98.9 F 09/15/24 10:25 Temperature Source Temporal Artery Scan 09/15/24 10:25 Pulse Rate 104 H 09/15/24 10:25 Respiratory Rate 20 09/15/24 10:25 Blood Pressure 191/105 H 09/15/24 10:25 Blood Pressure Mean 133 H 09/15/24 10:25 Pulse Oximetry 99 09/15/24 10:25 Oxygen Delivery Method Room Air 09/15/24 10:25 Vital Signs Temperature 98.9 F 09/15/24 10:25 Pulse Rate 104 H 09/15/24 10:25 Respiratory Rate 20 09/15/24 10:25 Blood Pressure 191/105 H 09/15/24 10:25 Pulse Oximetry 99 09/15/24 10:25 Oxygen Delivery Method Room Air 09/15/24 10:25 Temperature 98.9 F 09/15/24 10:25 Pulse Rate 100 09/15/24 12:00 Respiratory Rate 16 09/15/24 12:00 Blood Pressure 160/85 H 09/15/24 11:31 Pulse Oximetry 96 09/15/24 12:00 Oxygen Delivery Method Room Air 09/15/24 10:25 Medications Administered Medications: Discontinued Medications Generic Name Dose Route Start Last Admin Trade Name Freq PRN Reason Stop Dose Admin Lorazepam 1 mg 09/15/24 11:46 09/15/24 12:05 Lorazepam 1 Mg Tablet PO 09/15/24 11:47 1 mg ONCE ONE Administration Morphine Sulfate 8 mg 09/15/24 11:46 09/15/24 11:59 Morphine 4 Mg/Ml Inj IM 09/15/24 11:47 Not Given ONCE ONE Medical Decision Making Lab Data Labs: Lab Results 09/15/24 Range/Units 12:03 INR 1.78 H (0.91-1.10) Imaging Data right knee x-ray: Attestation: I have reviewed the pertinent imaging results. Radiologist's impression: Patient: Patricia Cadet MR#: [id number] : 1965 Acct:[id number] Loc: ED Service Date: 09/15/[address]: Ordering Physician: Jelena Verde M.D. Date of Service: 09/15/24 Procedure(s): XR knee RT 3V Accession Number(s): [id number] cc: Jelena Verde M.D.; Edd Osullivan M.D.~ For Patients: As a result of the Cures Act, medical imaging exams and procedure reports are released immediately into your electronic medical record. You may view this report before your referring provider. If you have questions, please contact your health care provider. Indication: Pain/fall Technique: Right knee 3 views Comparison: None Findings: Bones: No acute fracture or dislocation. Joint spaces: Chondrocalcinosis. Mild patellofemoral joint osteoarthritis. Soft tissues: No knee joint effusion. Impression: No sign of acute injury. Dictated by oDttie Bhakta MD @ 09/15/2024 11:53:[address]- Other: Attestation: I have reviewed the pertinent imaging results. Radiologist's impression: Patient: Patricia Cadet MR#: [id number] : 1965 Acct:[id number] Loc: ED Service Date: 09/15/[address]: Ordering Physician: Jelena Verde M.D. Date of Service: 09/15/24 Procedure(s): CT lumbar spine wo con Accession Number(s): [id number] cc: Jelena Verde M.D.; Edd Osullivan M.D.~ For Patients: As a result of the 21st Century Cures Act, medical imaging exams and procedure reports are released immediately into your electronic medical record. You may view this report before your referring provider. If you have questions, please contact your health care provider. INDICATION: Fall with back pain. TECHNIQUE: CT lumbar spine without contrast. COMPARISON: None FINDINGS: Vertebral alignment: Alignment is normal. Vertebrae: There are no fractures or suspicious bony lesions. Discs and facet joints: Mild L4-5 disc space narrowing. Shallow disc protrusions L2-3 L3-4 and L5-S1 with mild peripheral calcifications. No ymkdncvx-us-ralrvo central or lateral stenosis. Multilevel moderate facet arthrosis Extraspinal findings: Prevertebral soft tissues and visualized retroperitoneum are unremarkable. IMPRESSION: No acute lumbar CT abnormalities. Multilevel lumbar spondylosis. Please note that all CT scans at this facility use dose modulation, iterative reconstruction, and/or weight-based dosing when appropriate to reduce radiation dose to as low as reasonably achievable. Dictated by Ankur Berg MD @ 09/15/2024 11:37:[address] scan - head: Attestation: I have reviewed the pertinent imaging results. Radiologist's impression: Patient: [facility] Facility: [facility] Site . Site : 1965 Study: CT-Head WITHOUT-09/15/2024 12:35:46 PM Ordering Physician: Mehreen Bowles Final Report: Indication: Fall today. Technique: Noncontrast CT of head was performed. Comparison: None available. Findings: Brain parenchyma: Normal kasper-white matter differentiation. No acute intraparenchymal hemorrhage. No mass effect or midline shift. Partial empty sella. Extra-axial spaces: No extra-axial collection. Ventricular system: Unremarkable for age. Paranasal sinuses and mastoid air cells: Clear. Orbits: Unremarkable. Bones: No calvarial fracture. Impression: No acute intracranial abnormality identified. Please note that all CT scans at this facility use dose modulation, iterative reconstruction, and/or weight-based dosing when appropriate to reduce radiation dose to as low as reasonably achievable. Dictated by Gianna Caceres MD @ 09/15/2024 12:56:37 PM Left hip x-ray: Attestation: I have reviewed the pertinent imaging results. Radiologist's impression: Patient: [facility] Facility: [facility] Site . Site : 1965 Study: XRay-Hip Left 2 VIEW-09/15/2024 12:42:24 PM Ordering Physician: Mehreen Bowles Final Report: Indication: Fall Technique: Single view of the pelvis, two views of the left hip. Comparison: None. Findings: Osteopenia. Postsurgical changes are seen within the pelvis. Saen-sy-ldtzhwmm degenerative changes of the bilateral hips. No acute displaced fracture or malalignment. Impression: No acute displaced fracture or malalignment. Dictated by Brian Ocampo MD @ 09/15/2024 1:01:42 PM Discharge Plan Discharge Clinical Impression: Low back pain, Knee pain Patient Disposition: Home, Self-Care Condition: Improved Instructions: Acute Low Back Pain (ED), Knee Pain (ED) Additional Instructions: You can use Tylenol or ibuprofen at home. I have prescribed a muscle relaxer if you would like to use that as well. Ice may be helpful. All of your imaging today including your left hip, right knee, CT scan of your low back and CT scan of your head, does not show any concerning findings. No broken bones or other abnormalities. If you are continuing to have problems with your back, knee, or hip, I would recommend primary care follow-up. Return any time for acute worsening or new symptoms. Prescriptions: New cyclobenzaprine 10 mg tablet 10 mg PO TID PRN (Reason: muscle spasm) Qty: 14 0RF No Action warfarin 2.5 mg tablet PO atenolol 50 mg tablet PO Follow Up/Referrals: Edd Osullivan MD [Primary Care Provider] - Stand Alone Forms: [employer] Info Instructions
[2024-09-15] MEDS: LORazepam 1 MG TABLET PO (12:05)
[2024-09-15 12:27] LABS: INR 1.78 (0.91-1.10); Prothrombin Time 21.9 Seconds
== END 2024-09-15 14:13 | disposition home or self-care (01) ==
PROVIDERS: Emergency Provider Emergency Medicine; PCP Family Medicine
DX: M54.50 Low back pain, unspecified (principal); M25.561 Pain in right knee; W00.0XXA Fall on same level due to ice and snow, initial encounter; Y93.K1 Activity, walking an animal
CPT/HCPCS: 36415; 70450; 72131; 73502; 73562; 85610; 96372; 99284; 99285; A9270

== ENCOUNTER 2024-09-17 19:11 | Emergency (ER) | payer BC, SELFPAY ==
--- OUTSIDE RECORDS SUMMARY | 2024-09-17 19:14 | XMS_ITS | Encounter Summary ---
Author Organization [facility] Address [address] [place] [address] Care Team Providers Care Jackaroo Name Role Phone Elsewhere, Pcp Primary Care Provider Unavailabl e Encounter Details Date Type Department Care Team (Late st Contact Info) Description 04/04/2024 Orders Only Central Appointment Office in [address] [address] [facility], Provider, Pain Pelvic Floor Female Social History Tobacco Use Types Packs/Day Years Used Date Smoking Tobacco: Never Smokeless Tobacco: Never Alcohol Use Standard Drinks/Week Comments No 0 (1 standard drink = 0.6 oz pur e alcohol) Nutrition Answer Date Recorded Nutrition: EVOO Fat Source 13 04/13 Nutrition: Servings of Fruits/Vegetables per Day Not on file 04/13/2020 Dental Answer Date Recorded Dental: Regular Dentist Unknown 11/19/19 21 Comments No Sex and Gender Information Value Date Recorded Sex Assigned at Not on file 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
--- OUTSIDE RECORDS SUMMARY | 2024-09-17 19:14 | XMS_ITS ---
Author Organization [facility] Address [address] [place] [address] Care Team Providers Care Comparative Sociology Professor Name Role Phone Unavailable Unavailable Unavailable Surgery Details Not on file Complications Check Surgery Details section. Procedure Estimated Blood Loss Check Surgery Details section. Procedure Findings Check Surgery Details section. Procedure Specimens Taken Check Surgery Details section.
--- OUTSIDE RECORDS SUMMARY | 2024-09-17 19:14 | XMS_ITS | Data Portability ---
Author Organization [place] [facility] Address [address] [place] [phone] Assessment Encounter Date Assessment Date Assessment LastModified [...] By Organization Details Last Modified Time 06/30/2024 58023 PROCEDURE RECOMMENDATIONS 1. Ultrasound guided foam sclerotherapy of the residual incompetent tributaries and varicosities greater than 3.0mm of the left leg (16137, 24689) - 1 sessions 2. Ultrasound guided foam sclerotherapy of the residual incompetent tributaries and varicosities greater than 3.0mm of the right leg (97459, 00212) - 2 sessions Not available 06/30/2024 14:49:05 Reason for Referral None Reported. Problems Name Problem SNOMED Code Status Onset Date Resolution Date Notes Provider Name and Address Organization Details Recorded Time Pain co-occurr ent and due to varicose veins of left leg [id number] Active 2022 Varicose veins of left lower extremiti es with pain; Status Update Date: 10/19/2022 12:32:02 PM Record Status: True Elle ge Code ID: I83.812 T erminal ID: [id number] ICD Code Version: 10 Not Available [facility] 22:42:42 Problem Notes None recorded. Procedures Surgical History Date Name Laterality Status Provider Name and Address Organization Details Recorded Time 07/28/20 PVC - Ultrasound Guided Sclerotherapy completed Solange Nelson [place] [facility] 07/28/2024 14:00:03 Hysterectomy completed ROSA MARIA Brandon-C [address], [place], [address], [facility] - [facility] 06/30/2024 14:34:14 Vein Stripping completed ROSA MARIA Brandon-C [address], [place], [address], [facility] - [facility] 06/30/2024 14:34:14 Vein procedure completed Sylvia Peck PA-C [address], [place], [address], [facility] - [facility] 06/30/2024 14:34:14 Hand Surgery completed ROSA MARIA Brandon-C [address], [place], [address], [facility] - [facility] 06/30/2024 14:34:14 Bladder surgery completed Sylvia Peck, PA-C [address], [place], [address], [facility] - [facility] 06/30/2024 14:34:14 [...] By Patie nt: False ; Not Available [facility] 3 22:35:16 191 hydrochlo rothiazid e [...] 00 PM Al lergy Statu s: 1 Manning ction Time: 12:00 AM En tered By Robert nt: False ; Not Available [facility] 3 22:35:16 191 sulfabenz amide Not available Not available Not available Not available 09/10/2023 41300 RxNorm Comme nt: NoKno wDrug Aller gy: False Jericho rgy Name ID: [id number] Jericho rgy Remov e Reaso nID: 0 All ergy Remov e By ID: 0 Rec ord Statu s: 1 Ter valerie ID: 59 Da teCRU D: 023 6:26: 00 PM Al lergy Statu s: 1 Emmie ction Time: 12:00 AM En tered By Robert nt: False ; Not Available [facility] 3 22:35:16 1920 Cortispor in medicatio n Not available Not available Not available 09/10/2023 20619 RxNorm Comme nt: NoKno wDrug Aller gy: False Jericho rgy Name ID: [id number] Aller gy Remov e Reaso nID: 0 All ergy Remov e By ID: 0 Rec ord Statu s: 1 Ter vaelrie ID: 59 Da teCRU D: 023 6:26: 00 PM Al lergy Statu s: 1 Manning ction Time: 12:00 AM En tered By Robert nt: False ; Not Available [facility] 3 22:35:16 192 Imitrex medicatio n Not available Not available Not available 09/10/2023 40864 3 RxNorm Comme nt: NoKno wDrug Aller gy: False Jericho rgy Name ID: [id number] Aller gy Remov e Reaso nID: 0 All ergy Remov e By ID: 0 Rec ord Statu s: 1 Ter valerie ID: 59 Da teCRU D: 023 6:24: 00 PM Al lergy Statu s: 1 Manning ction Time: 12:00 AM En tered By [...] 00 PM Al lergy Statu s: 1 Manning ction Time: 12:00 AM En tered By Robert nt: False ; Not Available [facility] 3 22:35:16 193 ketorolac medicatio n Not available Not available Not available 09/10/2023 72019 RxNorm Comme nt: NoKno wDrug Aller gy: False Jericho rgy Name ID: [id number] Aller gy Remov e Reaso nID: 0 All ergy Remov e By ID: 0 Rec ord Statu s: 1 Ter valerie ID: 59 Da teCRU D: 023 6:27: 00 PM Al lergy Statu s: 1 Manning ction Time: 12:00 AM En tered By Robert nt: False ; Not Available [facility] 3 22:35:16 193 Claritin medicatio n Not available Not available Not available 09/10/2023 33360 6 RxNorm Comme nt: NoKno wDrug Aller gy: False Jericho rgy Name ID: [id number] Aller gy Remov e Reaso nID: 0 All ergy Remov e By ID: 0 Rec ord Statu s: 1 Ter valerie ID: 59 Da teCRU D: 023 6:28: 00 PM Al lergy Statu s: 1 Emmie ction Time: 12:00 AM En tered By Robert nt: False ; Not Available [facility] 3 22:35:16 1940 Product containin g angiotens in-conver ting enzyme inhibitor (product) medicatio n Not available Not available Not available 09/10/2023 16412 009 SNOMED Comme nt: NoKno wDrug Aller gy: False Jericho rgy Name ID: 8 All ergy Remov e Reaso nID: 0 All ergy Remov e By ID: 0 Rec ord Statu s: 1 Ter valerie ID: 59 Da teCRU D: 023 6:24: 00 PM Al lergy Statu s: 1 Emmie ction Time: 12:00 AM En tered By Patimorales nt: False ; Not Available [facility] 3 22:35:16 1944 alprazola m medicatio [...] By Robert nt: False ; Not Available [facility] 3 22:35:16 1948 neomycin medicatio n Not available Not available Not available 09/10/2023 7299 RxNorm Comme nt: NoKno wDrug Aller gy: False Jericho rgy Name ID: [id number] Aller gy Remov e Reaso nID: 0 All ergy Remov e By ID: 0 Rec ord Statu s: 1 Ter valerie ID: 59 Da teCRU D: 023 6:26: 00 PM Al lergy Statu s: 1 Manning ction Time: 12:00 AM En tered By Robert nt: False ; Not Available [facility] 3 22:35:16 1952 sulfate salt Not available Not available Not available Not available 09/10/2023 React ion: Eye and ear drops ; Comme nt: NoKno wDrug Aller gy: False Jericho rgy Name ID: [id number] Jericho rgy Remov e Reaso nID: 0 All ergy Remov e By ID: 0 Rec ord Statu s: 1 Ter valerie ID: 59 Da teCRU D: 023 6:27: 00 PM Al lergy Statu s: 1 Manning ction Time: 12:00 AM En tered By Patimorales nt: False ; Not Available [facility] 3 22:35:16 1958 polymyxin B Not available Not available Not available Not available 09/10/2023 8536 RxNorm Comme nt: NoKno wDrug Aller gy: False Jericho rgy Name ID: [id number] Jericho rgy Remov e Reaso nID: 0 All ergy Remov e By ID: 0 Rec ord Statu s: 1 Ter valerie ID: 59 Da teCRU D: 023 6:26: 00 PM Al lergy Statu s: 1 Emmie ction Time: 12:00 AM En tered By Robert nt: False ; Not Available [facility] 3 22:35:16 1964 Medicinal product acting as adhesive (product) environme nt,medica tion Not available Not available Not available 09/10/2023 20041 2008 SNOMED Comme nt: NoKno wDrug Aller gy: False Jericho rgy Name ID: 0 All ergy Remov e Reaso nID: 0 All ergy Remov e By ID: 0 Rec ord Statu s: 1 Ter valerie ID: 59 Da teCRU D: 023 6:28: 00 PM Al lergy Statu s: 1 Emmie ction Time: 12:00 AM En tered By Robert nt: False ; Not Available [facility] 3 22:35:17 8585 Iodinated contrast media (substanc e) medicatio n Not available Not available Not available 06/30/2024 12888 2003 SNOMED Sylvia Peck PA-C [address] [place], [address], [place] [facility] [...] Peck PA-C [address], [place], [address], [place] [facility] 06/30/2024 14:34:11 What Is Your Level Of Alcohol Consumption? None Information not available 06/30/2024 Are You Currently Employed? 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 [employer] Information not available 06/30/2024 How [...] Diagnosis/Indication Diagnosis SNOMED-CT Code Diagnosis ICD10 Code 99192 MD Meagan Morgan [address] [place] [address] 06/30/2024 13:29:04 07/02/2024 04:11:42 Pain co-occurrent and due to varicose veins of bilateral legs [id number] I83.813 11395 MD Meagan Morgan [address] [place] [address] 06/30/2024 13:29:05 07/01/2024 14:51:01 Pain co-occurrent and due to varicose veins of bilateral legs [id number] 4212003 I83.813 [id number] MD Meagan Morgan [address] [place] [address] 07/28/2024 13:30:32 07/29/2024 09:21:49 Pain co-occurrent and due to varicose veins of left leg [id number] 2119065 I83.812 Health Concerns Section Related Observation LastModified by Organization Detai ls LastModified Time None Recorded Concern Status LastModified by Organization Details LastModified Time None Recorded Advance Directives Directive None Recorded Payers Encounter Date Sequence Insurance Name Policy Number Policy [place] Covered Member ID Hampton Member ID Guarantor Name 06/30/2024 1 [place] [employer] [place] (PPO) [id number] Caleb J Pasek [id number] Patricia J Pasek 06/30/2024 1 [place] [id number] Caleb J Pasek [id number] Patricia J Pasek 07/28/2024 1 [place]O) [id number] Caleb J Pasek [id number] 02 Patricia J Pasek Notes Date Note [...] Ramonita Jenkins MD [address] [place], [address], [place] [facility] 06/30/2024 [...] Ramonita Jenkins MD [address] [place], [address], [place] [facility] 06/30/2024 15:55:04 OBGyn Episode No OBEpisode recorded.
--- OUTSIDE RECORDS SUMMARY | 2024-09-17 19:14 | XMS_ITS | Clinical Summary ---
Author Organization [facility] Address [address] [facility] [place] [address] Care Team Providers Care Plasticator Name Role Phone Clinic, [facility] Primary Care Provider + Allergies Active Allergy Reactions Criticality Noted Date Comments Tate Inhibitors 02/28/2017 Adhesive Tape 02/28/2017 Alprazolam 02/28/2017 Worsens anxiety Povidone Iodine 02/28/2017 Brompheniramine-Pseudoeph 02/28/2017 Loratadine 02/28/2017 Affects the lungs Contrast Dye Anaphylaxis,Swell ing,Difficulty breathing High 02/28/2017 Angioedema, respiratory distress; 2016 reaction again from the contrast dye. Was given benadryl and steroids and it did not help. Patient never wants a ct-scan again. Mgtzfmhr-Zgaipyrdw-Dr 02/28/2017 Hydrochlorothiazide Hives,Itching 02/28/2017 Sumatriptan 02/28/2017 Ketorolac Hives 02/28/2017 Neomycin 02/28/2017 Ofloxacin Hives 02/28/2017 Polymyxin B 02/28/2017 Sulfabenzamide 02/28/2017 Medications Sertraline HCl (ZOLOFT PO)Indications:An xiety Disorder Take 12.5 mg by mouth At Bedtime Active SPIRONOLACTONE PO Take 50 mg by mouth daily Active ATENOLOL PO Take 25 mg by mouth daily Active Furosemide (LASIX PO) Take 40 mg by mouth 2 times daily May take 1 additional tablet (40mg) in AM as needed for swelling Active Potassium Chloride ER 20 MEQ TBCR Take 20 mEq by mouth 2 times daily Active Vit-Fe Fumarate-FA ( MULTIVITAMIN PLUS IRON) 27-0.8 MG TABS per tablet Take 1 tablet by mouth daily Active APIXABAN PO Take 5 mg by mouth 2 times daily Active triamcinolone (KENALOG) 0.1 % cream Apply topically 2 times daily as needed for irritation Active LORAZEPAM PO Take 0.5 mg by mouth daily as needed for anxiety Active Fexofenadine HCl (KIRK ALLERGY PO) Take 180 mg by mouth daily as needed (for spring allergies) Active DIPHENHYDRAMINE HCL PO Take 50 mg by mouth daily as needed (for spring allergies) Active ACETAMINOPHEN PO Take 1,000 mg by mouth every 6 hours as needed for pain Active omeprazole (PRILOSEC) 20 MG CR capsuleIndication s:Gastroesophagea l reflux disease without esophagitis Take 1 capsule (20 mg) by mouth daily 30 capsule 8 Active HYDROcodone-aceta minophen (NORCO) 5-325 MG tabletIndications :Post-operative state Take 1 tablet by mouth every 6 hours as needed for severe pain 10 tablet 9 Active Active Problems Problem Noted Date Diagnosed Date Colitis 04/03/2018 Acute pulmonary embolism 02/28/2017 Social History Tobacco Use Types Packs/Day Years Used Date Smoking Tobacco: Never Smokeless Tobacco: Never Alcohol Use Standard Drinks/Week Comments No 0 (1 standard drink = 0.6 oz pur e alcohol) RARE Comments No Sex and Gender Information Value Date Recorded Sex Assigned at Not on file 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 Gender Identity Not on file Sexual Orientation Not on file Last Filed Vital Signs Vital Sign Reading Time Taken Comments Blood Pressure 130/78 07/08/2019 9:25 AM CDT Pulse 72 07/08/2019 9:19 AM CDT Temperature 36.3 C (97.4 F) 07/08/2019 9:25 AM CDT Respiratory Rate 16 07/08/2019 9:25 AM CDT Oxygen Saturation 97% 07/08/2019 9:25 AM CDT Inhaled Oxygen Concentration - - Weight 74.8 kg (165 lb) 07/08/2019 7:00 AM CDT Height 162.6 cm (5' 4) 07/08/2019 7:00 AM CDT Body Mass Index 28.32 07/08/2019 7:00 AM CDT Plan of Treatment Not on file [place] Advance Directives For more information, please contact: [phone] * Full Code (Latest Code Status on File) Date Activated Date Inactivated Comments 04/04/2018 2:21 PM * Full Code Date Activated Date Inactivated Comments 04/03/2018 5:50 AM 04/04/2018 2:21 PM * Full Code Date Activated Date Inactivated Comments 03/02/2017 9:37 AM 04/03/2018 5:50 AM * Full Code Date Activated Date Inactivated Comments 02/28/2017 11:37 PM 03/02/2017 9:37 AM Care Teams Plasticator Relationship Specialty Start Date End Date Clinic, [address] [address] PCP - General 02/28/17
--- OUTSIDE RECORDS SUMMARY | 2024-09-17 19:14 | XMS_ITS | Referral Summary ---
Author Organization [facility] Address [address] [place] [address] Care Team Providers Care Agile Project Manager Name Role Phone Elsewhere, Pcp Primary Care Provider Unavailabl e Source Comments Patient records contain information from all sites at [facility]. For routine questions regarding patient records, call [phone] during business hours, M-F 8:00 AM - 5:00 PM Central Time. Record requests for emergency care only can be directed to [phone] at any time.[facility] Encounters Date Type Department Care Team Description 06/25/2024 4:03 PM CDT - 06/25/2024 11:59 PM CDT Hospital Encounter Department of Radiology in [place], [place] [address] [place] [phone] Edd Osullivan M.D. Follow Up Exam; Nodules Pulmonary Multiple Discharge Disposition: Home or Self Care from Last 3 Months Allergies Active Allergy Reactions Criticality Noted Date Comments Tate Inhibitors Hives (Reselect Reaction) 10/29/2016 Adhesive Hives (Reselect Reaction) 02/23/2016 Alprazolam Anxiety 02/23/2016 Brompheniramine-Pseudoephed rin Other (see comments) 10/24/2010 Hyperactivity Diatrizoate Meglumine Shortness of breath (Reselect Reaction),Anaphyl axis 10/20/2010 Contrast dye Hydrochlorothiazide Hives (Reselect Reaction) 10/29/2016 Iodinated Contrast Media Anaphylaxis,Meliza rt ness of breath (Reselect Reaction),Swellin g High 10/29/2016 Angioedema, respiratory distress; 2015 reaction again from the contrast dye. Was given benadryl and steroids and it did not help. Patient never wants a ct-scan again. Ketorolac Hives (Reselect Reaction) 02/23/2016 Neomycin Sulfate Other (see comments) 10/29/2016 Reaction unknown, believes it may be hives Ofloxacin Hives (Reselect Reaction) 02/23/2016 Polymyxin B Other (see comments) 02/28/2017 Polymyxin B Sulfate Other (see comments) 10/29/2016 Possibly hives Povidone-Iodine Hives (Reselect Reaction) 02/23/2016 Shellfish Containing Products Edema (Reselect Reaction) 10/24/2010 Itching and hives Sulfabenzamide Hives (Reselect Reaction) 02/23/2016 Sumatriptan Other (see comments) 10/29/2016 Zeigler like ants were crawling on head Medications atenolol (TENORMIN) 25 mg tablet Take 1 tablet by mouth daily. 7 Active furosemide (LASIX) 40 mg tablet Take 40 mg by mouth daily. 8 Active LORazepam (ATIVAN) 0.5 mg tablet Take 1 tablet by mouth. 7 Active multivitamin capsule Take 1 tablet by mouth daily. 7 Active potassium chloride (KLOR-CON M/KDUR) 20 mEq ER tablet Take 20 mEq by mouth daily. 8 Active sertraline (ZOLOFT) 50 mg tablet Take 12.5 mg by mouth daily. 6 Active spironolactone (ALDACTONE) 100 mg tablet Take 0.25 tablets by mouth daily. 7 Active apixaban (ELIQUIS) 5 mg tablet Take 5 mg by mouth 2 (two) times a day. Active triamcinolone (KENALOG) 0.1 % cream Apply 1 application topically 2 (two) times a day as needed for rash. Active acetaminophen (TYLENOL EXTRA STRENGTH) 500 mg tablet Take 1,000 mg by mouth. Active IBUPROFEN-DIPHE NHYDRAMINE HCL ORAL Take 50 mg by mouth. Active fexofenadine-ps eudoephedrine (KIRK-D 24 HOUR) 180-240 mg per 24 hr tablet Take 180 mg by mouth. Active azithromycin (ZITHROMAX) 250 mg tablet Take 2 tablets (500 mg) on day 1, followed by 1 tablet (250 mg) daily for 4 days. 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 Gender Identity Not on file Sexual Orientation Not on file Last Filed Vital Signs Vital Sign Reading Time Taken Comments Blood Pressure 147/89 04/25/2024 1:20 PM CDT Pulse 87 04/25/2024 1:20 PM CDT Temperature 36.2 C (97.2 F) 04/01/2024 12:44 PM CDT Respiratory Rate 18 04/01/2024 12:44 PM CDT Oxygen Saturation 97% 04/01/2024 12:44 PM CDT Inhaled Oxygen Concentration - - Weight 74.2 kg (163 lb 8 oz) 04/25/2024 1:19 PM CDT Height 162.6 cm (5' 4.02) 04/25/2024 1:19 PM CD T Body Mass Index 28.05 04/25/2024 1:19 PM CDT Plan of Treatment Not on file Procedures Procedure Name Priority Date/Time Associated Diagnosis Comments CT CHEST WITHOUT IV CONTRAST RAD - Routine (most inpatients and all outpatients) 06/25/2024 4:16 PM CDT Follow Up Exam Nodules Pulmonary Multiple BASIC METABOLIC PANEL, S/P STAT 04/01/2024 1:27 PM CDT from Last 3 Months or Most Recently Relevant to Health Maintenance Results * CT Chest without IV Contrast (06/25/2024 4:16 PM CDT) Anatomical Region Laterality Modality Chest, Thoracic RST LOS, Tho racic ARZ LOS, Thoracic FLA LOS N/A Computed Tomography Impressions 06/25/2024 4:26 PM CDT 1. Interval stability of centrally lucent 5 x 4 mm indeterminate medial right lower lobe pulmonary nodule. Continued CT follow-up (6-12 months) recommended to further document stability. 2. Coronary arterial calcification most notable in the LAD distribution. 3. Hepatic steatosis. Narrative 06/25/2024 4:26 PM CDT EXAM: CT CHEST WITHOUT IV CONTRAST COMPARISON: CT chest of April 07, 2024. CT abdomen April 01, 2024. FINDINGS: Interval stability of centrally lucent 5 x 4 mm medial right lower lobe pulmonary nodule (6/199). Minimal scarring/pleural thickening along the anterior aspect of the right minor fissure appears unchanged. No acute airspace opacity. No significant pleural or pericardial effusion. Airways are patent without endobronchial lumen lesion or bronchiectasis. No pathologically enlarged axillary, mediastinal or hilar lymph nodes. Coronary arterial calcification most notable in the LAD distribution. The visualized portions of the upper abdomen have a stable noncontrast enhanced appearance. The gallbladder is absent. Diffuse hepatic parenchymal hypoattenuation persists consistent with steatosis. No suspicious lytic/sclerotic osseous lesion or acute osseous abnormality. Procedure Note Jude Barnhart M.D. - 06/25/2024 EXAM: CT CHEST WITHOUT IV CONTRAST COMPARISON: CT chest of April 07, 2024. CT abdomen April 01, 2024. FINDINGS: Interval stability of centrally lucent 5 x 4 mm medial rightlower lobe pulmonary nodule (6/199). Minimal scarring/pleural thickeningalong the anterior aspect of the right minor fissure appears unchanged. Noacute airspace opacity. No significant pleural or pericardial effusion. Airways are patent without endobronchial lumen lesion or bronchiectasis. No pathologically enlarged axillary, mediastinal or hilar lymph nodes. Coronary arterial calcification most notable in the LAD distribution. The visualized portions of the upper abdomen have a stable noncontrastenhanced appearance. The gallbladder is absent. Diffuse hepaticparenchymal hypoattenuation persists consistent with steatosis. No suspicious lytic/sclerotic osseous lesion or acute osseousabnormality. IMPRESSION: 1. Interval stability of centrally lucent 5 x 4 mm indeterminate medialright lower lobe pulmonary nodule. Continued CT follow-up (6-12 months)recommended to further document stability. 2. Coronary arterial calcification most notable in the LAD distribution. 3. Hepatic steatosis. Edd Osullivan M.D. [facility] PROCEDURES Final Result * (ABNORMAL) Basic Metabolic Panel (04/01/2024 1:27 PM CDT) Potassium, P 4.0 3.6 - 5.2 mmol/L 04/01/2024 1:46 PM CDT CNFL Sodium, P 137 135 - 145 mmol/L 04/01/2024 1:46 PM CDT CNFL Chloride, P 99 98 - 107 mmol/L 04/01/2024 1:46 PM CDT CNFL Bicarbonate, P 25 22 - 29 mmol/L 04/01/2024 1:46 PM CDT CNFL Anion Gap, P 13 7 - 15 04/01/2024 1:46 PM CDT CNFL BUN (Blood Urea Nitrogen), P 18 6 - 21 mg/dL 04/01/2024 1:46 PM CDT CNFL Creatinine 0.85 0.59 - 1.04 mg/dL 04/01/2024 1:46 PM CDT CNFL Estimated GFR (eGFR) 79 >=60 mL/min/BSA 04/01/2024 1:46 PM CDT CNFL Comment: Estimated GFR calculated using the 2020 CKD_EPI creatinine equation. Calcium, Total, P 9.4 8.6 - 10.0 mg/dL 04/01/2024 1:46 PM CDT CNFL Glucose, P 173(H) 70 - 140 mg/dL 04/01/2024 1:46 PM CDT CNFL Blood (Blood, Venous) 04/01/2024 1:27 PM CDT 04/01/2024 1:29 PM CDT us Karely Espitia P.A.-C., P.A., M.S. 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
--- OUTSIDE RECORDS SUMMARY | 2024-09-17 19:14 | XMS_ITS | Clinical Summary ---
Author Organization [facility] Address [address] [place] [address] Care Team Providers Care Supervisor Epoxy Fabrication Name Role Phone Elsewhere, Pcp Primary Care Provider Unavailabl e Source Comments Patient records contain information from all sites at [facility]. For routine questions regarding patient records, call [phone] during business hours, M-F 8:00 AM - 5:00 PM Central Time. Record requests for emergency care only can be directed to [phone] at any time.[facility] Allergies Active Allergy Reactions Criticality Noted Date Comments Tate Inhibitors Hives (Reselect Reaction) 10/29/2016 Adhesive Hives (Reselect Reaction) 02/23/2016 Alprazolam Anxiety 02/23/2016 Brompheniramine-Pseudoephed rin Other (see comments) 10/24/2010 Hyperactivity Diatrizoate Meglumine Shortness of breath (Reselect Reaction),Anaphyl axis 10/20/2010 Contrast dye Hydrochlorothiazide Hives (Reselect Reaction) 10/29/2016 Iodinated Contrast Media Anaphylaxis,Meliza rt ness of breath (Reselect Reaction),Swellin g High 10/29/2016 Angioedema, respiratory distress; 2016 reaction again from [...] Reaction) 02/23/2016 Sumatriptan Other (see comments) 10/29/2016 [place] like ants were crawling on head Medications [...] 02/23/2016 Malformation Vascular 02/23/2016 Other Dyspnea 02/23/2016 Encounters Date Type Department Care Team Description 06/25/2024 4:03 PM CDT - 06/25/2024 11:59 PM CDT Hospital Encounter Department of Radiology in [place], [place] [address] [place] [address] Edd Osullivan M.D. 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 Gender Identity Not on file Sexual Orientation [...] 04/25/2024 1:19 PM CDT Plan of Treatment Health Maintenance Due Date Last Done Comments CT Colonography 1965 Cologuard 1965 Colonoscopy 1965 Colorectal Cancer Screening 1965 FIT 1965 HIV Screening 1965 Hepatitis C Screening 1965 Lipid (Cholesterol) Screening 1965 Mammogram 1965 Hepatitis B Vaccines (1 of 3 - 19+ 3-dose series) 1984 Pneumococcal vaccine (50+ years) (1 of 1 - PCV) 2015 Depression Screening (Annual PHQ-2) 09/17/2023 COVID-19 Vaccine ( - season) 2024 06/14/2022, 08/08/2021, 02/04/2021, Additional history exists Influenza Vaccine (#1) 2024 Office Visit for Blood Pressure Check / Re-check 07/26/2024 04/25/2024 Creatinine Level (Kidney Function Test) 04/01/2025 04/01/2024, 09/27/2018, 04/02/2018, Additional history exists Potassium Level 04/01/2025 04/01/2024, 09/17, 04/02/2018, Additional history exists Sodium Level 04/01/2025 04/01/2024, 09/17, 04/02/2018, Additional history exists Fasting Glucose for Diabetes Screening 04/01/2027 04/01/2024, 09/27/2018, 04/02/2018, Additional history exists DTaP,Tdap,and Td Vaccines (2 - Td or Tdap) 07/30/2030 07/30/2020 Zoster Vaccines Completed 10/22/2020, 08/02/2020 IPV Vaccines Aged Out No longer eligi ble based on patient's age to complete this topic Pneumococcal vaccine (0-49 years) Aged Out No longer eligible based on patient's age to complete this topic Procedures Procedure Name Priority Date/Time Associated Diagnosis [...] in the LAD distribution. 3. Hepatic steatosis. us Edd Osullivan M.D. IMG CT PROCEDURES Final Result * (ABNORMAL) Basic [...] 1:27 PM CDT 04/01/2024 1:29 PM CDT Karely Espitia P.A.-C., P.A., M.S. LAB BLOOD ADD-O N Final Result Performing Organization Address City/State/[facility] Co de Phone Number [facility] [address] [place] [id number], [place] CNFL [facility] in [place] [address] [place] [address] from Last 3 Months or Most Recently Relevant to [place] [address] [facility] Care Teams Supervisor Epoxy Fabrication Relationship Specialty Start Date End Date Elsewhere, Pcp PCP - General Commissions Coordinator 10/01/19
--- OUTSIDE RECORDS SUMMARY | 2024-09-17 19:14 | XMS_ITS | Referral Summary ---
Author Organization [facility] Address [address] [facility] [place] [address] Care Team Providers Care Cut Out Stitcher Name Role Phone Clinic, [facility] Primary Care Provider + Allergies Active [...] help. Patient never wants a ct-scan again. 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 Gender Identity Not on file Sexual Orientation [...] Treatment Not on file [place] Advance Direct[place] For more information, please contact: [phone] * Full Code (Latest Code Status on File) Date Activated Date Inactivated Comments 04/04/2018 2:21 PM * Full Code Date Activated Date Inactivated Comments 04/03/2018 5:50 AM 04/04/2018 2:21 PM * Full Code Date Activated Date Inactivated Comments 03/02/2017 9:37 AM 04/03/2018 5:50 AM * Full Code Date Activated Date Inactivated Comments 02/28/2017 11:37 PM 03/02/2017 9:37 AM Care Teams Cut Out Stitcher Relationship Specialty Start Date End Date Clinic, [address] [address] PCP - General 02/28/17
[2024-09-17 19:16] VITALS: BP 187/84; PULSE 105; RESP 20; TEMP 36.8; O2SAT 97; BMI 25.6
[2024-09-17 20:10] VITALS: BP 176/100; PULSE 96; RESP 16; O2SAT 97
--- OUTSIDE RECORDS SUMMARY | 2024-09-17 20:10 | XMS_ITS | Referral Summary ---
Author Organization [facility] Address [address] [facility] [place] [address] Care Team Providers Care President Financial Institution Name Role Phone Clinic, [facility] Primary Care Provider + Allergies Active Allergy [...] help. Patient never wants a ct-scan again. 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 Gender Identity Not on file Sexual Orientation [...] Treatment Not on file [place] Advance Direct[place] For more information, please contact: [phone] * Full Code (Latest Code Status on File) Date Activated Date Inactivated Comments 04/04/2018 2:21 PM * Full Code Date Activated Date Inactivated Comments 04/03/2018 5:50 AM 04/04/2018 2:21 PM * Full Code Date Activated Date Inactivated Comments 03/02/2017 9:37 AM 04/03/2018 5:50 AM * Full Code Date Activated Date Inactivated Comments 02/28/2017 11:37 PM 03/02/2017 9:37 AM Care Teams President Financial Institution Relationship Specialty Start Date End Date Clinic, [address] [address] PCP - General 02/28/17
--- OUTSIDE RECORDS SUMMARY | 2024-09-17 20:10 | XMS_ITS | Referral Summary ---
Author Organization [facility] Address [address] [place] [address] Care Team Providers Care Diffusion Operator Name Role Phone Elsewhere, Pcp Primary Care Provider Unavailabl e Source Comments Patient records contain information from all sites at [facility]. For routine questions regarding patient records, call [phone] during business hours, M-F 8:00 AM - 5:00 PM Central Time. Record requests for emergency care only can be directed to [phone] at any time.[facility] Encounters Date Type Department Care Team Description 06/25/2024 4:03 PM CDT - 06/25/2024 11:59 PM CDT Hospital Encounter Department of Radiology in [place], [place] [address] [place] [id number] Edd Osullivan M.D. 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 3. Hepatic steatosis. Edd Osullivan M.D. [facility] PROCEDURES Final Result * (ABNORMAL) Basic [...] M.S. LAB BLOOD ADD-O N Final Result [facility] [address] [place] [id number], [facility] CNFL [facility] in [address] [address] from Last 3 Months or Most Recently Relevant to [place] [address] [facility] Care Teams Diffusion Operator Relationship Specialty Start Date End Date Elsewhere, Pcp PCP - General Acid Condenser 10/01/19
--- OUTSIDE RECORDS SUMMARY | 2024-09-17 20:10 | XMS_ITS | Clinical Summary ---
Author Organization [facility] Address [address] [place] [address] Care Team Providers Care Freight Broker Name Role Phone Elsewhere, Pcp Primary Care Provider Unavailabl e Source Comments Patient records contain information from all sites at [facility]. For routine questions regarding patient records, call [phone] during business hours, M-F 8:00 AM - 5:00 PM Central Time. Record requests for emergency care only can be directed to [phone] at any time.[facility] Allergies Active Allergy Reactions Criticality Noted Date [...] Reaction) 02/23/2016 Sumatriptan Other (see comments) 10/29/2016 [place] like ants were crawling on head Medications [...] CDT Hospital Encounter Department of Radiology in [place], [place] [address] [place] [address] Edd Osullivan M.D. 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
--- OUTSIDE RECORDS SUMMARY | 2024-09-17 20:10 | XMS_ITS ---
Author Organization [facility] Address [address] [place] [address] Care Team Providers Care Manager Community Development Name Role Phone Unavailable Unavailable Unavailable Surgery Details Not on file Complications Check Surgery Details section. Procedure Estimated Blood Loss Check Surgery Details section. Procedure Findings Check Surgery Details section. Procedure Specimens Taken Check Surgery Details section.
--- OUTSIDE RECORDS SUMMARY | 2024-09-17 20:10 | XMS_ITS | Clinical Summary ---
Author Organization [facility] Address [address] [place] [address] Care Team Providers Care Automobile Service Writer Name Role Phone Clinic, [facility] Primary Care Provider + Allergies Active Allergy [...] help. Patient never wants a ct-scan again. 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 Gender Identity Not on file Sexual Orientation [...] Treatment Not on file [place] Advance Directives For more information, please contact: [phone] * Full Code (Latest Code Status on File) Date Activated Date Inactivated Comments 04/04/2018 2:21 PM * Full Code Date Activated Date Inactivated Comments 04/03/2018 5:50 AM 04/04/2018 2:21 PM * Full Code Date Activated Date Inactivated Comments 03/02/2017 9:37 AM 04/03/2018 5:50 AM * Full Code Date Activated Date Inactivated Comments 02/28/2017 11:37 PM 03/02/2017 9:37 AM Care Teams Automobile Service Writer Relationship Specialty Start Date End Date Clinic, [address] [address] PCP - General 02/28/17
--- OUTSIDE RECORDS SUMMARY | 2024-09-17 20:10 | XMS_ITS | Encounter Summary ---
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
--- NOTE | 2024-09-17 20:41 | ED_ITS ---
HPI - Back Pain/Injury General Date Seen: 09/17/24 Chief Complaint: Back Injury/Pain Stated Complaint: Fell Sunday-pain Time Seen by Provider: 09/17/24 19:16 Source: patient, family, EMS, RN notes reviewed and old records reviewed Mode of arrival: EMS Limitations: no limitations History of Present Illness HPI Narrative: Patient is a very nice 59-year-old female who presents here increasing back pain, over the last 2 days. She fell 2 days ago, was evaluated here with the CT scan of her lumbar spine in her head. As she is on Coumadin, she has been was doing fine was able to go home, but the pain is just been increasing. She was unable to really walker do anything, and she called the ambulance who brought her here. She has been taking Tylenol for the discomfort and cyclobenzaprine which she was prescribed. And she took 2 tablets of her sons oxycodone today. She did not get pain relief so she brought in. She does not have any numbness tingling or weakness in her legs she has at trouble peeing however for the last couple days. She denies any accidents, it least from stooling. She does feel that she is not emptying her bladder well. She denies any dysuria or frequency any blood in her urine, MD elicited complaint: back pain Pertinent past history: recent trauma Severity: severe Similar Symptoms Previously: No Location: lumbar spine Radiation: none Exacerbating factors: none Relieving factors: none Associated symptoms: denies other symptoms, increased urinary urgency and increased urinary frequency Treatments prior to arrival: cold therapy, heat therapy, acetaminophen and prescription analgesics Work related injury: No Related Data Home Medications ?Medication ?Instructions ?Recorded ?Confirmed atenolol 50 mg tablet 50 mg PO BID 09/15/24 09/17/24 warfarin 2.5 mg tablet 2.5 mg PO DAILY 09/15/24 09/17/24 metformin 500 mg tablet,extended 500 mg PO BID 09/17/24 09/17/24 release 24 hr potassium chloride 20 mEq 20 meq PO DAILY 09/17/24 09/17/24 tablet,extended release Previous Rx's ?Medication ?Instructions ?Recorded cyclobenzaprine 10 mg tablet 10 mg PO TID PRN muscle spasm #14 09/15/24 tabs Allergies Allergy/AdvReac Type Severity Reaction Status Date / Time Fish Containing Products Allergy Intermediate Swelling Verified 09/17/24 19:20 of Lip/Tongue/Throat hydrochlorothiazide Allergy Intermediate Hives Verified 09/17/24 19:20 loratadine (From Claritin) Allergy Intermediate Verified 09/17/24 19:20 IVAN Inhibitors Allergy Unknown Verified 09/17/24 19:20 bacitracin (From Cortisporin) Allergy Unknown Verified 09/17/24 19:20 hydrocortisone (From Allergy Unknown Verified 09/17/24 19:20 Cortisporin) neomycin Allergy Unknown Verified 09/17/24 19:20 polymyxin B Allergy Unknown Verified 09/17/24 19:20 povidone-iodine (From Allergy Unknown Verified 09/17/24 19:20 Betadine) sulfabenzamide Allergy Unknown Verified 09/17/24 19:20 sumatriptan (From Imitrex) Allergy Unknown Verified 09/17/24 19:20 adhesive tape AdvReac Unknown Verified 09/17/24 19:20 alprazolam AdvReac Verified 09/17/24 19:20 contrast Media Ready-Box Allergy Severe Difficulty Uncoded 09/15/24 10:46 Breathing eye drops Allergy Intermediate Hives Uncoded 09/15/24 10:46 ketorolac tromethamine Allergy Intermediate Hives Uncoded 09/15/24 10:46 ear drops Allergy Unknown Uncoded 09/15/24 10:46 Review of Systems Status of ROS: Reports: 10 or more systems reviewed and unremarkable except as noted in History and below [facility] Social History Smoking Status: Never smoker Do you use any of these nicotine containing products: None Second hand tobacco smoke exposure: No How often do you have a drink containing alcohol: never AUDIT-C Alcohol total score: 0 Non-prescribed substance use: denies use service: No Exam Narrative: Exam Narrative: On examination in room 6 he is in no apparent distress, is lying on the gurney, says she does not think she can roll over for me, extremities are all normal, she tells been no fall fall today. GCS is 15/15, the head martínez reveals no evidence of any trauma bruising, her neck is supple full range of motion, heart sounds are normal chest is clear abdomen is soft, but I can feel a palpable bladder, right at the umbilicus. On percussion. Bladder scan is done which shows greater than 500 mL postvoid. We then applied put the catheter in, to drain 550, she then felt a lot better, she was able to roll on her side I palpated her back she did not have any pain to palpation percussion over her lumbar or thoracic area. She was able to set up then for me. On sitting up she was very surprised that she did have any pain. And said SLR is are negative to 90? bilaterally EHLs, great toe flexors ankle dorsiflexors plantar flexors and knee flexors extensors were all normal. Reflexes are 1/4 her knees and ankles. Her muscle bulk is normal her pulses are normal. Sensation is normal over entire dermatomal area of her lower extremities. Rectal exam is done with the nurse present, this shows good rectal tone, she has good perianal sensation to. I explained to her at the present time she sees you doing well she clearly was in urinary retention. She feels much better now as evidence by her blood pressure coming down. I would recommend that we watch her for a little while make sure she can walk. If she still has no back pain on examination. Further I do not think we need to do anything more. I did review her CT scans which she did not show anything bony at all in her regards to compression fracture from T10 through at L5. I did however call the radiologist as she has a very small alas aneurysm coming off at level of L3 of her aorta. This will need to be followed up, this was not seen on the initial CT report. Const: Vital Signs, click to edit/add: Vital Signs - 24 hr 09/17/24 19:16 09/17/24 20:10 Temperature 98.2 F Pulse Rate [Right Pulse Oximeter] 105 H 96 Respiratory Rate 20 16 Blood Pressure [Ri ght Upper Arm] 187/84 H 176/100 H Pulse Oximetry 97 97 Oxygen Delivery Me thod Room Air Room Air Documenting provider has reviewed patient's vital signs: yes Course Course ED Course: Patient is doing a lot better she is able to walk around the room without any back pain at all, I think the issue was the urinary retention. Which likely was from the Flexeril, not think this is cauda equina, and she has no back pain at all she has no perianal numbness, and she is otherwise doing well. I discussed with him that we will let them go home at this point. She will follow up in 48 hours for catheter removal with primary care, maria g Nelson, we gave her some oxycodone that she can use for breakthrough pain his I do not think this was causing this show although together in might have been compounded. Nevertheless, she is on Coumadin, and do not use ibuprofen. Will continue with this he did benefit. We discussed also that she has the small aneurysm is seen on CT of her lumbar spine she should follow-up with her primary care physician and get screened 6 months. To ensure there is no enlargement Vital Signs Vital signs: Initial Vital Signs Temperature 98.2 F 09/17/24 19:16 Temperature Source Temporal Artery Scan 09/17/24 19:16 Pulse Rate 105 H 09/17/24 19:16 Respiratory Rate 20 09/17/24 19:16 Blood Pressure 187/84 H 09/17/24 19:16 Blood Pressure Mean 118 H 09/17/24 19:16 Blood Pressure Position Sitting 09/17/24 19:16 Pulse Oximetry 97 09/17/24 19:16 Oxygen Delivery Method Room Air 09/17/24 19:16 Vital Signs Temperature 98.2 F 09/17/24 19:16 Pulse Rate 105 H 09/17/24 19:16 Respiratory Rate 20 09/17/24 19:16 Blood Pressure 187/84 H 09/17/24 19:16 Pulse Oximetry 97 09/17/24 19:16 Oxygen Delivery Method Room Air 09/17/24 19:16 Temperature 98.2 F 09/17/24 19:16 Pulse Rate 96 09/17/24 20:10 Respiratory Rate 16 09/17/24 20:10 Blood Pressure 176/100 H 09/17/24 20:10 Pulse Oximetry 97 09/17/24 20:10 Oxygen Delivery Method Room Air 09/17/24 20:10 MDM - Back Pain/Injury MDM Narrative Medical decision making narrative: Insert Differential Diagnosis Differential diagnosis: Likely lumbar radiculopathy, sciatica, strain of lumbar region, renal colic, pyelonephritis, thoracic back pain, AAA and discitis Medical Records Attestation: I reviewed the patient's medical records. Discharge Plan Discharge Clinical Impression: Acute urinary retention, Back pain, Abdominal aortic aneurysm (AAA) 30 to 34 mm in diameter Patient Disposition: Home w/ Parent or Adult Condition: Improved Instructions: Acute Low Back Pain (ED), Acute Urinary Retention in Women (ED), Heat Pack Application (ED), Smalls Catheter Removal (DC), Aortic Disease (DC) Additional Instructions: So lets stop using the Flexeril, is a suspect that this is the reason why you have the urinary retention. He only took 2 doses of your son this oxycodone someone to give you some oxycodone that you can use as needed. Follow-up in 2 days with primary care for catheter removal. The back pain worsens, you become incontinent, then please come back. There is a small abdominal aortic aneurysm seen on your lumbar CT. It is 2.5 cm in size. They would just follow this, with ultrasound likely in 6 months to year. Please bring this up with your primary care physician so they can start on this process. Oxycodone 5 mg po tid prn x 12 tabs via instymeds Activity Level: Light activity Discharge Diet: Regular Prescriptions: No Action warfarin 2.5 mg tablet 2.5 mg PO DAILY atenolol 50 mg tablet 50 mg PO BID cyclobenzaprine 10 mg tablet 10 mg PO TID PRN (Reason: muscle spasm) Qty: 14 0RF metformin 500 mg tablet extended release 24 hr 500 mg PO BID potassium chloride 20 mEq tablet extended release 20 meq PO DAILY Follow Up/Referrals: Edd Osullivan MD [Primary Care Provider] - Stand Alone Forms: [employer] Info Instructions
== END 2024-09-17 21:10 | disposition home or self-care (01) ==
PROVIDERS: Emergency Provider Family Medicine; PCP Family Medicine
DX: M54.9 Dorsalgia, unspecified (principal); I71.40 Abdominal aortic aneurysm, without rupture, unspecified; R33.9 Retention of urine, unspecified
CPT/HCPCS: 51798; 99284

== ENCOUNTER 2024-09-18 14:51 | Emergency (ER) | payer BC, SELFPAY ==
[2024-09-18] VITALS (7 sets, daily range): BP systolic 179; BP diastolic 98; PULSE 85–104; RESP 12–16; TEMP 36.6; O2SAT 87–98; BMI 24.9
--- OUTSIDE RECORDS SUMMARY | 2024-09-18 14:53 | XMS_ITS ---
Author Organization [facility] Address [address] [place] [address] Care Team Providers Care Group Chief Operator Name Role Phone Unavailable Unavailable Unavailable Surgery Details Not on file Complications Check Surgery Details section. Procedure Estimated Blood Loss Check Surgery Details section. Procedure Findings Check Surgery Details section. Procedure Specimens Taken Check Surgery Details section.
--- OUTSIDE RECORDS SUMMARY | 2024-09-18 14:53 | XMS_ITS | Encounter Summary ---
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
--- OUTSIDE RECORDS SUMMARY | 2024-09-18 14:53 | XMS_ITS | Clinical Summary ---
Author Organization [place] Address [address] [place] [address] Care Team Providers Care Manager Internship Name Role Phone Clinic, [facility] Primary Care Provider + Allergies Active [...] help. Patient never wants a ct-scan again. 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 Gender Identity Not on file Sexual Orientation [...] Treatment Not on file [place] Advance Direct[place] For more information, please contact: [phone] * Full Code (Latest Code Status on File) Date Activated Date Inactivated Comments 04/04/2018 2:21 PM * Full Code Date Activated Date Inactivated Comments 04/03/2018 5:50 AM 04/04/2018 2:21 PM * Full Code Date Activated Date Inactivated Comments 03/02/2017 9:37 AM 04/03/2018 5:50 AM * Full Code Date Activated Date Inactivated Comments 02/28/2017 11:37 PM 03/02/2017 9:37 AM Care Teams Manager Internship Relationship Specialty Start Date End Date Clinic, [address] [address] PCP - General 02/28/17
--- OUTSIDE RECORDS SUMMARY | 2024-09-18 14:53 | XMS_ITS | Clinical Summary ---
Author Organization [facility] Address [address] [place] [address] Care Team Providers Care High School Tutor Name Role Phone Elsewhere, Pcp Primary Care Provider Unavailabl e Source Comments Patient records contain information from all sites at [facility]. For routine questions regarding patient records, call [phone] during business hours, M-F 8:00 AM - 5:00 PM Central Time. Record requests for emergency care only can be directed to [phone] at any time.[facility] Allergies Active Allergy Reactions Criticality Noted Date [...] Reaction) 02/23/2016 Sumatriptan Other (see comments) 10/29/2016 [place] like ants were crawling on head Medications [...] CDT Hospital Encounter Department of Radiology in [place], [place] [address] [place] [address] Edd Osullivan M.D. 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
--- OUTSIDE RECORDS SUMMARY | 2024-09-18 14:53 | XMS_ITS | Referral Summary ---
Author Organization [facility] Address [address] [place] [address] Care Team Providers Care Bdc Manager Name Role Phone Elsewhere, Pcp Primary Care Provider Unavailabl e Source Comments Patient records contain information from all sites at [facility]. For routine questions regarding patient records, call [phone] during business hours, M-F 8:00 AM - 5:00 PM Central Time. Record requests for emergency care only can be directed to [phone] at any time.[facility] Encounters Date Type Department Care Team Description 06/25/2024 4:03 PM CDT - 06/25/2024 11:59 PM CDT Hospital Encounter Department of Radiology in [place], [place] [address] [place] [phone] Edd Osullivan M.D. 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 3. Hepatic steatosis. Edd Osullivan M.D. [facility] PROCEDURES Final Result * (ABNORMAL) Basic [...] M.S. LAB BLOOD ADD-O N Final Result [facility] [address] [place] [address], [facility] CNFL [facility] in [address] [address] from Last 3 Months or Most Recently Relevant to [place] [address] [facility] Care Teams Bdc Manager Relationship Specialty Start Date End Date Elsewhere, Pcp PCP - General Director Summer Sessions 10/01/19
--- OUTSIDE RECORDS SUMMARY | 2024-09-18 14:53 | XMS_ITS | Referral Summary ---
Author Organization [place] Address [address] [place] [address] Care Team Providers Care Bank Vault Custodian Name Role Phone Clinic, [facility] Primary Care Provider + Allergies [...] help. Patient never wants a ct-scan again. 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 Gender Identity Not on file Sexual Orientation [...] Treatment Not on file [place] Advance Directives For more information, please contact: [phone] * Full Code (Latest Code Status on File) Date Activated Date Inactivated Comments 04/04/2018 2:21 PM * Full Code Date Activated Date Inactivated Comments 04/03/2018 5:50 AM 04/04/2018 2:21 PM * Full Code Date Activated Date Inactivated Comments 03/02/2017 9:37 AM 04/03/2018 5:50 AM * Full Code Date Activated Date Inactivated Comments 02/28/2017 11:37 PM 03/02/2017 9:37 AM Care Teams Bank Vault Custodian Relationship Specialty Start Date End Date Clinic, [address] [address] PCP - General 02/28/17
--- NOTE | 2024-09-18 15:22 | ED_ITS ---
HPI - General Adult General Chief complaint: Back Injury/Pain Stated complaint: pain Time Seen by Provider: 09/18/24 15:07 History of Present Illness HPI narrative: This 59-year-old female comes in stating that she has severe pain such she is she is not able to walk. She was seen 3 days ago because she fell. At that time she had CT imaging and x-ray imaging all with negative results. She came in again yesterday and was found to have urinary retention. A Smalls catheter is placed then and continues to be in place. She felt much better going home after visit yesterday but now has worsened pain and states that she has too much pain to be able to get up and walk. She is wondering if she has a urinary tract infection. She also is concerned about her INR level which was checked at 1.8 recently. She attempted to call the clinic and did not get any answer or response regarding her INR. She states that she has taken an extra warfarin tablet. Related Data Home Medications ?Medication ?Instructions ?Recorded ?Confirmed atenolol 50 mg tablet 50 mg PO BID 09/15/24 09/17/24 warfarin 2.5 mg tablet 2.5 mg PO DAILY 09/15/24 09/17/24 metformin 500 mg tablet,extended 500 mg PO BID 09/17/24 09/17/24 release 24 hr potassium chloride 20 mEq 20 meq PO DAILY 09/17/24 09/17/24 tablet,extended release Previous Rx's ?Medication ?Instructions ?Recorded cyclobenzaprine 10 mg tablet 10 mg PO TID PRN muscle spasm #14 09/15/24 tabs Allergies Allergy/AdvReac Type Severity Reaction Status Date / Time Fish Containing Products Allergy Intermediate Swelling Verified 09/17/24 19:20 of Lip/Tongue/Throat hydrochlorothiazide Allergy Intermediate Hives Verified 09/17/24 19:20 loratadine (From Claritin) Allergy Intermediate Verified 09/17/24 19:20 IVAN Inhibitors Allergy Unknown Verified 09/17/24 19:20 bacitracin (From Cortisporin) Allergy Unknown Verified 09/17/24 19:20 hydrocortisone (From Allergy Unknown Verified 09/17/24 19:20 Cortisporin) neomycin Allergy Unknown Verified 09/17/24 19:20 polymyxin B Allergy Unknown Verified 09/17/24 19:20 povidone-iodine (From Allergy Unknown Verified 09/17/24 19:20 Betadine) sulfabenzamide Allergy Unknown Verified 09/17/24 19:20 sumatriptan (From Imitrex) Allergy Unknown Verified 09/17/24 19:20 adhesive tape AdvReac Unknown Verified 09/17/24 19:20 alprazolam AdvReac Verified 09/17/24 19:20 contrast Media Ready-Box Allergy Severe Difficulty Uncoded 09/15/24 10:46 Breathing eye drops Allergy Intermediate Hives Uncoded 09/15/24 10:46 ketorolac tromethamine Allergy Intermediate Hives Uncoded 09/15/24 10:46 ear drops Allergy Unknown Uncoded 09/15/24 10:46 Review of Systems Status of ROS: Reports: 10 or more systems reviewed and unremarkable except as noted in History and below Narrative: Constitutional: No fevers, no weight gain or loss. Eyes: No discharge. No vision changes. HENT: No congestion, no sore throat, no ear pain. Cardiovascular: No chest pain, no palpitations. Respiratory: No shortness of breath, no wheezes, no cough. Gastrointestinal: No abdominal pain, no vomiting, no diarrhea. Genitourinary: Smalls catheter in place because of recent urinary retention. Musculoskeletal: Normal range of motion. Skin: No rashes, no pruritis. Neurological: No dizziness, weakness, sensory change, speech change. Endo/Heme/Allergies: No bruising or bleeding. No polydipsia. Pysch: no suicidality, no anxiety, no insomnia. All other systems reviewed and are negative. [facility] Social History Smoking Status: Never smoker Do you use any of these nicotine containing products: None Second hand tobacco smoke exposure: No How often do you have a drink containing alcohol: never AUDIT-C Alcohol total score: 0 Non-prescribed substance use: denies use service: No Exam Narrative: Exam Narrative: Constitutional: Well-developed, well-nourished. This patient is complaining of severe pain that is nonspecific generally. She does report pain in her lower abdomen. She states that she is unable to get up and ambulate because of pain. HEENT: Normocephalic, atraumatic. Neck: Normal range of motion. Nontender. Supple. Heart: Regular. No murmurs. Normal rate. Intact distal pulses. Lungs: Clear to auscultation. No chest discomfort. No wheezes, rhonchi, or rales. Abdomen: Normal bowel sounds. Nontender. No rebound tenderness. Genitalia: Deferred. Back: No midline tenderness. Normal range of motion. Extremities: Normal range of motion. No injury. Skin: Intact. No rash. Warm. No erythema or pallor. Neurologic: No altered sensation. No weakness. Alert and oriented. Psychiatric: No suicidality. No anxiety or depression. No insomnia. Nursing notes and vitals signs are reviewed. Const: Vital Signs, click to edit/add: Vital Signs - 24 hr 09/18/24 14:54 09/18/24 15:57 09/18/24 16:00 Temperature 97.9 F Pulse Rate 94 Pulse Rate [Pulse Oximeter] 104 H Respiratory Rate 16 14 Blood Pressure [Ri ght Upper Arm] 179/98 H Pulse Oximetry 97 98 93 Oxygen Delivery Me thod 09/18/24 16:30 09/18/24 17:00 09/18/24 18:00 Temperature Pulse Rate 91 101 H 96 Pulse Rate [Pulse Oximeter] Respiratory Rate 12 Blood Pressure [Ri ght Upper Arm] Pulse Oximetry 89 93 91 Oxygen Delivery Me thod Room Air Room Air 09/18/24 19:00 Temperature Pulse Rate 85 Pulse Rate [Pulse Oximeter] Respiratory Rate 14 Blood Pressure [Ri ght Upper Arm] Pulse Oximetry 87 L Oxygen Delivery Me thod Room Air Course Vital Signs Vital signs: Initial Vital Signs Temperature 97.9 F 09/18/24 14:54 Temperature Source Temporal Artery Scan 09/18/24 14:54 Pulse Rate 104 H 09/18/24 14:54 Respiratory Rate 16 09/18/24 14:54 Blood Pressure 179/98 H 09/18/24 14:54 Blood Pressure Mean 125 H 09/18/24 14:54 Blood Pressure Position Sitting 09/18/24 14:54 Pulse Oximetry 97 09/18/24 14:54 Vital Signs Temperature 97.9 F 09/18/24 14:54 Pulse Rate 104 H 09/18/24 14:54 Respiratory Rate 16 09/18/24 14:54 Blood Pressure 179/98 H 09/18/24 14:54 Pulse Oximetry 97 09/18/24 14:54 Temperature 97.9 F 09/18/24 14:54 Pulse Rate 85 09/18/24 19:00 Respiratory Rate 14 09/18/24 19:00 Blood Pressure 179/98 H 09/18/24 14:54 Pulse Oximetry 87 L 09/18/24 19:00 Oxygen Delivery Method Room Air 09/18/24 19:00 Medications Administered Medications: Discontinued Medications Generic Name Dose Route Start Last Admin Trade Name Simone PRN Reason Stop Dose Admin Hydromorphone HCl 0.5 mg 09/18/24 15:21 09/18/24 15:39 Hydromorphone 0.5 Mg/0.5 Ml Inj IVP 09/18/24 15:22 0.5 mg ONCE ONE Administration Hydromorphone HCl 0.5 mg 09/18/24 17:09 09/18/24 17:26 Hydromorphone 0.5 Mg/0.5 Ml Inj IVP 09/18/24 17:10 0.5 mg ONCE ONE Administration Meclizine HCl 25 mg 09/18/24 18:17 09/18/24 19:40 Meclizine Hcl 25 Mg Tablet PO 09/18/24 18:18 25 mg ONCE ONE Administration Ondansetron HCl 4 mg 09/18/24 15:21 09/18/24 15:40 Ondansetron 2 Mg/Ml Inj IVP 09/18/24 15:22 4 mg ONCE ONE Administration Ondansetron HCl 4 mg 09/18/24 18:17 09/18/24 18:50 Ondansetron 2 Mg/Ml Inj IVP 09/18/24 18:18 4 mg ONCE ONE Administration Medical Decision Making [facility] Narrative Medical decision making narrative: This patient comes in reporting generalized pain and describes it as spasms. She has a Smalls catheter in because of a visit yesterday where she had urinary retention. A urinalysis is obtained and shows no sign of infection. Not lab results also or obtained and these returned with reassuring findings. The patient did receive an IV dose of Dilaudid and stated that her pain was better but she very easily gets focused on some symptoms that she feels disabled her. This is pain, nausea, vertigo symptoms. She has been here for 5 hours in the ER with recurrent and various complaints and in the end stating that she can not get up and ambulate. She wanted to be admitted into the hospital but I stated there are no beds available and that there are no findings that require hospitalization. In and she did get up and ambulate and is okay to be discharged home. She will need to return to clinic in a couple days to have the Smalls catheter removed. I did provide [facility] prescription for Zofran. Lab Data Labs: Lab Results 09/18/24 09/18/24 Range/Units 15:40 16:23 WBC 6.02 (4.50-11.00) K/uL RBC 4.91 (4.00-5.20) m/uL Hgb 16.1 H (12.0-16.0) gm/dL Hct 47.5 (33.0-51.0) % MCV 97 (80-100) fL MCH 33 (26-34) pg MCHC 34 (32-36) gm/dL RDW Coeff of Jose Cruz 12.9 (11.5-15.5) % Plt Count 165 (140-440) K/uL Neut % (Auto) 52.1 (42.0-72.0) % Lymph % (Auto) 39.4 (20-44) % [place]hen[place] % (Auto) 6.8 (0.0-11.0) % Eos % (Auto) 1.2 (0.0-7.0) % Baso % (Auto) 0.5 (0.0-3.0) % Neut # (Auto) 3.14 (1.7-7.0) K/uL Lymph # (Auto) 2.37 (0.90-2.90) K/uL [place]hen[place] # (Auto) 0.40 (0.00-0.90) K/UL Eos # (Auto) 0.07 (0.00-0.50) K/uL Baso # (Auto) 0.03 (0.00-0.30) K/uL Abs Immat Gran (auto) 0.00 (0.00-0.30) K/uL Imm/Tot Granulo (auto) 0.0 % INR 3.01 H (0.91-1.10) Sodium 140 (135-149) mmol/L Potassium 4.3 (3.6-5.1) mmol/L Chloride 105 (96-114) mmol/L Carbon Dioxide 26 (20-32) mmol/L Anion Gap 9 (7-15) mEq/L BUN 18 (7-30) mg/dL Creatinine 0.7 (0.5-1.5) mg/dL Estimated Creat Clear 81.01 Estimated GFR 100 ml/min Glucose 251 H (60-115) mg/dL Calcium 9.4 (8.4-10.6) mg/dL Urine Color Yellow (Yellow) Urine Appearance Cloudy A (Clear) Urine pH 5.5 (5.0-8.5) Ur Specific [place] 1.025 (1.000-1.030) Urine Protein 1+ A (Negative) Urine Glucose (UA) 2+ A (Negative) Urine Ketones Negative (Negative) Urine Blood 3+ A (Negative) Urine Nitrite Negative (Negative) Urine Bilirubin Negative (Negative) Urine Urobilinogen 0.2 (0.2-1.0) Ur Leukocyte Esterase Negative (Negative) Urine RBC >100 A (0-2) Urine WBC 0-2 (0-5) Ur Squamous Epith Cells None (None-Few) Urine Bacteria Few A (None) Discharge Plan Discharge Clinical Impression: Back pain Patient Disposition: Home w/ Parent or Adult Condition: Stable Additional Instructions: Continue current plans. Increase activity as tolerated. Follow up with MD for ongoing management. Prescriptions: No Action warfarin 2.5 mg tablet 2.5 mg PO DAILY atenolol 50 mg tablet 50 mg PO BID cyclobenzaprine 10 mg tablet 10 mg PO TID PRN (Reason: muscle spasm) Qty: 14 0RF metformin 500 mg tablet extended release 24 hr 500 mg PO BID potassium chloride 20 mEq tablet extended release 20 meq PO DAILY Follow Up/Referrals: Edd Osullivan MD [Primary Care Provider] - Stand Alone Forms: [employer] Info Instructions
[2024-09-18] MEDS: HYDROmorphone 0.5 mg/0.5 ml inj IVP ×2 (15:39→17:26)
[2024-09-18] MEDS: ONDANSETRON 2 MG/ML inj 4 MG IVP ×2 (15:40→18:50)
--- OUTSIDE RECORDS SUMMARY | 2024-09-18 15:55 | XMS_ITS | Clinical Summary ---
Author Organization [facility] Address [address] [place] [address] Care Team Providers Care Hemodialysis Lab Technician Name Role Phone Elsewhere, Pcp Primary Care Provider Unavailabl e Source Comments Patient records contain information from all sites at [facility]. For routine questions regarding patient records, call [phone] during business hours, M-F 8:00 AM - 5:00 PM Central Time. Record requests for emergency care only can be directed to [phone] at any time.[facility] Allergies Active Allergy Reactions Criticality Noted Date [...] Reaction) 02/23/2016 Sumatriptan Other (see comments) 10/29/2016 [place] like ants were crawling on head Medications [...] CDT Hospital Encounter Department of Radiology in [place], [place] [address] [place] [address] Edd Osullivan M.D. 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 Gender Identity Not on file Sexual Orientation [...] ADD-O N Final Result Performing Organization Address City/State/[facility] Co de Phone Number [facility] [id number] [place] [address], [place] CNFL [facility] in [place] [address] [place] [address] from Last 3 Months or Most Recently Relevant to [place] [address] [facility] Care Teams Hemodialysis Lab Technician Relationship Specialty Start Date End Date Elsewhere, Pcp PCP - General Education Officer 10/01/19
--- OUTSIDE RECORDS SUMMARY | 2024-09-18 15:55 | XMS_ITS | Encounter Summary ---
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
--- OUTSIDE RECORDS SUMMARY | 2024-09-18 15:55 | XMS_ITS | Referral Summary ---
Author Organization [facility] Address [address] [place] [address] Care Team Providers Care Boat Canvas Maker And Installer Name Role Phone Elsewhere, Pcp Primary Care Provider Unavailabl e Source Comments Patient records contain information from all sites at [facility]. For routine questions regarding patient records, call [phone] during business hours, M-F 8:00 AM - 5:00 PM Central Time. Record requests for emergency care only can be directed to [phone] at any time.[facility] Encounters Date Type Department Care Team Description 06/25/2024 4:03 PM CDT - 06/25/2024 11:59 PM CDT Hospital Encounter Department of Radiology in [place], [place] [address] [place] [id number] Edd Osullivan M.D. 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 3. Hepatic steatosis. Edd Osullivan M.D. [facility] CT PROCEDURES Final Result * (ABNORMAL) Basic [...] M.S. LAB BLOOD ADD-O N Final Result [facility] [address] [place] [address], [facility] CNFL [facility] in [address] [address] from Last 3 Months or Most Recently Relevant to [place] [address] [facility] Care Teams Boat Canvas Maker And Installer Relationship Specialty Start Date End Date Elsewhere, Pcp PCP - General Financial Manager 10/01/19
--- OUTSIDE RECORDS SUMMARY | 2024-09-18 15:55 | XMS_ITS | Clinical Summary ---
Author Organization [place] Address [address] [facility] [place] [address] Care Team Providers Care Mattress Spring Encaser Name Role Phone Clinic, [facility] Primary Care Provider + Allergies Active [...] help. Patient never wants a ct-scan again. 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 Gender Identity Not on file Sexual Orientation [...] Treatment Not on file [place] Advance Directives For more information, please contact: [phone] * Full Code (Latest Code Status on File) Date Activated Date Inactivated Comments 04/04/2018 2:21 PM * Full Code Date Activated Date Inactivated Comments 04/03/2018 5:50 AM 04/04/2018 2:21 PM * Full Code Date Activated Date Inactivated Comments 03/02/2017 9:37 AM 04/03/2018 5:50 AM * Full Code Date Activated Date Inactivated Comments 02/28/2017 11:37 PM 03/02/2017 9:37 AM Care Teams Mattress Spring Encaser Relationship Specialty Start Date End Date Clinic, [address] [address] PCP - General 02/28/17
--- OUTSIDE RECORDS SUMMARY | 2024-09-18 15:55 | XMS_ITS | Referral Summary ---
Author Organization [place] Address [address] [facility] [place] [address] Care Team Providers Care Elastic Attacher Overlock Name Role Phone Clinic, [facility] Primary Care Provider + Allergies Active [...] help. Patient never wants a ct-scan again. 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 Gender Identity Not on file Sexual Orientation [...] Treatment Not on file Insurance [place] For more information, please contact: [phone] * Full Code (Latest Code Status on File) Date Activated Date Inactivated Comments 04/04/2018 2:21 PM * Full Code Date Activated Date Inactivated Comments 04/03/2018 5:50 AM 04/04/2018 2:21 PM * Full Code Date Activated Date Inactivated Comments 03/02/2017 9:37 AM 04/03/2018 5:50 AM * Full Code Date Activated Date Inactivated Comments 02/28/2017 11:37 PM 03/02/2017 9:37 AM Care Teams Elastic Attacher Overlock Relationship Specialty Start Date End Date Clinic, [address] [address] PCP - General 02/28/17
--- OUTSIDE RECORDS SUMMARY | 2024-09-18 15:55 | XMS_ITS ---
Author Organization [facility] Address [address] [place] [address] Care Team Providers Care Tool Designer Name Role Phone Unavailable Unavailable Unavailable Surgery Details Not on file Complications Check Surgery Details section. Procedure Estimated Blood Loss Check Surgery Details section. Procedure Findings Check Surgery Details section. Procedure Specimens Taken Check Surgery Details section.
[2024-09-18 15:59] LABS: Basophils Absolute Auto 0.03 K/uL (0.00-0.30); Basophils Percent Auto 0.5 % (0.0-3.0); Eosinophils Absolute Auto 0.07 K/uL (0.00-0.50); Eosinophils Percent Auto 1.2 % (0.0-7.0); Hematocrit 47.5 % (33.0-51.0); Hemoglobin* 16.1 gm/dL (12.0-16.0); Lymphocytes Absolute Auto 2.37 K/uL (0.90-2.90); Lymphocytes Percent Auto 39.4 % (20-44); Mean Corpuscular HGB Conc 34 gm/dL (32-36); Mean Corpuscular Hemoglobin 33 pg (26-34); Mean Corpuscular Volume 97 fL (80-100); Monocytes Percent Auto 6.8 % (0.0-11.0); Neutrophils Absolute Auto 3.14 K/uL (1.7-7.0); Neutrophils Percent Auto 52.1 % (42.0-72.0); Platelet Count* 165 K/uL (140-440); RDW Coefficient of Variation % 12.9 % (11.5-15.5); Red Blood Count 4.91 m/uL (4.00-5.20); White Blood Count* 6.02 K/uL (4.50-11.00)
[2024-09-18 16:01] LABS: Slide Review Reflex No
[2024-09-18 16:32] LABS: Appearance Urine Cloudy (Clear); Bilirubin Urine Negative (Negative); Blood Urine 3+ (Negative); Color Urine Yellow (Yellow); Glucose Urine 2+ (Negative); Ketones Urine Negative (Negative); Leukocyte Esterase Urine Negative (Negative); Nitrite Urine Negative (Negative); Protein Urine 1+ (Negative); Specific Gravity Urine 1.025 (1.000-1.030); Urobilinogen Urine 0.2 (0.2-1.0); pH Urine 5.5 (5.0-8.5)
[2024-09-18 16:37] LABS: Chloride* 105 mmol/L (96-114); Potassium* 4.3 mmol/L (3.6-5.1); Sodium* 140 mmol/L (135-149)
[2024-09-18 16:40] LABS: Anion Gap 9 mEq/L (7-15); Blood Urea Nitrogen* 18 mg/dL (7-30); Carbon Dioxide* 26 mmol/L (20-32); Creatinine* 0.7 mg/dL (0.5-1.5); Est. Creatinine Clearance* 81.01; Estimated Glomerular Filt Rate 100 ml/min; Glucose* 251 mg/dL (60-115)
[2024-09-18 16:41] LABS: Calcium* 9.4 mg/dL (8.4-10.6)
[2024-09-18 16:43] LABS: INR 3.01 (0.91-1.10); Prothrombin Time 33.5 Seconds
[2024-09-18 16:49] LABS: Bacteria Urine Few; RBC Urine >100 (0-2); WBC Urine 0-2 (0-5)
[2024-09-18] MEDS: MECLIZINE HCL 25 MG TABLET PO (19:40)
== END 2024-09-18 21:26 | disposition home or self-care (01) ==
PROVIDERS: Emergency Provider Emergency Medicine Emergency Medical Services; PCP Family Medicine
DX: M54.9 Dorsalgia, unspecified (principal)
CPT/HCPCS: 36415; 80048; 81001; 85025; 85610; 87086; 94761; 96374; 96375; 96376; 99283; 99284; A9270; J1171; J2405